=== PATIENT | female | born 1935 | race Caucasian/White ===

== ENCOUNTER 2016-03-20 15:35 | Observation (INO) ==
--- NOTE | 2016-03-20 15:46 | Emergency Department Note ---
Disposition Clinical Impression: Dyspnea Qualifiers: Dyspnea type: unspecified Qualified Code(s): R06.00 - Dyspnea, unspecified Chest pain Qualifiers: Chest pain type: unspecified Qualified Code(s): R07.9 - Chest pain, unspecified Disposition: Admitted As Inpatient Condition: Fair SOB HPI - General Chief Complaint: ED Shortness of Breath/Dyspnea Stated Complaint: BRITTNEY Time Seen by Provider: 03/20/16 15:39 Source: patient Mode of arrival: EMS Limitations: no limitations Nursing Notes Reviewed: Yes Vital Signs Reviewed: Yes - History of Present Illness 80-year-old comes in with congestion she said she's had for several days had some chest pain earlier and had a persistent cough. Pt Subjective Complaint: shortness of breath, cough Onset (ago): day(s) Context: recent illness Severity: moderate Consistency/Duration: constant Improves with: nothing Worsens with: nothing Associated symptoms: Reports: cough Treatment prior to arrival: none Cough Description: Involuntary Cough Frequency: Intermittent Sputum production: Yes - Related Data Home Medications Medication Instructions Recorded Confirmed Ammonium Lactate [Amlactin] 1 appl TP QID PRN 03/21/16 03/21/16 Aspirin [Lo-Dose Aspirin EC] 81 mg PO QPM 03/21/16 03/21/16 Benzonatate [Tessalon] 100 mg PO DAILY PRN 03/21/16 03/21/16 Buspirone HCl [Buspar] 5 mg PO BID 03/21/16 03/21/16 Calcium Carbonate [Tums] 500 mg PO Q4HR PRN 03/21/16 03/21/16 Calcium Carbonate/Vitamin D3 500 mg PO BID 03/21/16 03/21/16 [Liquid Calcium 600-Vit D3 Sfgl] Calcium Polycarbophil [Fibercon] 625 mg PO DAILY PRN 03/21/16 03/21/16 Cyclobenzaprine [Flexeril] 5 mg PO BID PRN 03/21/16 03/21/16 Dextran 70/Hypromellose 1 drop BOTH EYES BID 03/21/16 03/21/16 [Artificial Tears] Dextran 70/Hypromellose/Pf 1 drop BOTH EYES PRN PRN 03/21/16 03/21/16 [Artificial Tears Drops] Docusate Sodium [Dok] 100 mg PO BID PRN 03/21/16 03/21/16 Estradiol [Estrace] 1 appl VG SUTUTH 03/21/16 03/21/16 Furosemide [Lasix] 20 mg PO DAILY 03/21/16 03/21/16 Gabapentin [Neurontin] 100 mg PO TID 03/21/16 03/21/16 Hydrocodone/Acetaminophen [Vicodin 7.5 each PO Q4H PRN 03/21/16 03/21/16 Es 7.5-300 mg Tablet] Hydrocortisone Acetate [Anusol-Hc] 25 mg RC Q12HR PRN 03/21/16 03/21/16 Levothyroxine Sodium [Levo-T] 125 mcg PO DAILY 03/21/16 03/21/16 Menthol/Zinc Ox/Aloe/Randi Oil 1 appl TP TID PRN 03/21/16 03/21/16 [Chamosyn Ointment] Methyl Salicylate/Menthol [Bengay] 1 appl TP QID PRN 03/21/16 03/21/16 Metoprolol Tartrate [Lopressor] 12.5 mg PO BID 03/21/16 03/21/16 Multivitamin [Multivitamins] 1 tab PO DAILY 03/21/16 03/21/16 Naphazoline HCl/Zn Sulf/Gly [Clear 1 drop LEFT EYE Q4HR PRN 03/21/16 03/21/16 Eyes Itchy Eye Rlf Drops] Nystatin POWDER [Nystop] 1 appl TP DAILY 03/21/16 03/21/16 Polyethylene Glycol 3350 [MiraLAX] 17 gm PO DAILY PRN 03/21/16 03/21/16 Potassium Chloride [Klor-Con 10] 10 meq PO BID 03/21/16 03/21/16 Ranitidine HCl [Acid Intermodal Truck Driver] 150 mg PO BID 03/21/16 03/21/16 Simvastatin [Zocor] 20 mg PO DAILY 03/21/16 03/21/16 Timolol Maleate [Istalol] 1 drop BOTH EYES DAILY 03/21/16 03/21/16 Tramadol HCl [Ultram] 50 mg PO QID 03/21/16 03/21/16 Travoprost [Travatan Z] 1 drop BOTH EYES HS 03/21/16 03/21/16 Allergies Allergy/AdvReac Type Severity Reaction Status Date / Time Dopamine Allergy See Verified 01/12/16 09:45 Comments midazolam Allergy See Verified 01/12/16 09:45 Comments Penicillins Allergy Rash Verified 01/12/16 09:45 Sulfa (Sulfonamide Allergy Rash Verified 01/12/16 09:46 Antibiotics) terfenadine Allergy See Verified 01/12/16 09:46 Comments codeine AdvReac Headache Verified 01/12/16 09:45 Constitutional: Denies: fever, chills, weakness, weight change Eyes: Denies: eye pain, eye discharge, vision change ENT ED: Denies: ear pain, throat pain, dental pain, hearing loss, epistaxis, congestion, dysphagia Cardiovascular: Reports: chest pain. Denies: palpitations, dyspnea on exertion , edema, syncope Respiratory: Reports: cough, dyspnea. Denies: wheezes, hemoptysis, stridor Gastrointestinal: Denies: abdominal pain, nausea, vomiting, diarrhea, constipation, hematemesis, melena, hematochezia Genitourinary: Denies: dysuria, frequency, hematuria, discharge Musculoskeletal: Denies: back pain, neck pain, arthralgia, myalgia Integumentary: Denies: rash, abrasion, lesions Neurological: Denies: headache, weakness, numbness, paresthesias, confusion, abnormal gait, vertigo Psychiatric: Denies: anxiety, depression, suicidal thoughts, homicidal thoughts , auditory hallucinations, visual hallucinations Endocrine: Denies: fatigue Hematological/Lymphatic: Denies: easy bleeding, easy bruising Allergic/Immunologic: Denies: facial swelling, urticaria Past Medical History - Past Medical History Medical history: Reports: atrial fibrillation, CHF, CVA, GERD, hyperlipidemia, hypertension, RA, renal disease, thyroid disease Surgical history: Reports: coronary bypass (CABG) Psychiatric history: Reports: anxiety, other - Social History Smoking Status: Never smoker Smokeless Tobacco Status: No Alcohol use: Reports: none Drug use: Reports: none Physical Exam - General Limitations: no limitations General appearance: alert, in no apparent distress - Head Head exam: atraumatic, normocephalic, normal inspection - Eye Eye exam: Present: normal appearance, PERRL, EOMI - ENT ENT exam: normal exam, normal oropharynx, mucous membranes moist - Neck Neck exam: Present: normal inspection, full ROM, trachea midline - Chest Chest inspection: Present: normal inspection, symmetric chest wall rise - Respiratory Respiratory exam: Present: prolonged expiratory phase - Cardiovascular Cardiovascular exam: Present: regular rate, normal rhythm, normal heart sounds - Abdominal Exam Abdominal exam: Present: soft, Non-Tender. Absent: tenderness, distention, guarding, rebound, rigidity - Extremities Exam Extremities exam: Present: normal inspection, full ROM. Absent: tenderness, pedal edema - Expanded Lower Extremity Exam Neurovascular/Tendon exam: Absent: motor deficit, sensory deficit, tendon deficit Gait: not tested/not observed - Back Exam Back exam: Present: normal inspection, full ROM. Absent: tenderness - Neurological Exam Neurological exam: Present: alert, oriented X3 - Psychiatric Psychiatric exam: Present: normal affect, normal mood - Skin Skin exam: Present: warm, dry, intact, normal color Course - Consultations Consultation #1: I discussed the case with , who will come down and see the patient and make final disposition. Time: 17:02 Vital Signs Temperature 98.5 F 03/20/16 15:37 Pulse Rate 68 03/20/16 15:37 Respiratory Rate 18 03/20/16 15:37 Blood Pressure 124/76 03/20/16 15:37 O2 Sat by Pulse Oximetry 96 03/20/16 15:37 Temperature 97.3 F L 03/23/16 03:40 Pulse Rate 71 03/23/16 03:40 Respiratory Rate 16 03/23/16 03:40 Blood Pressure 121/69 03/23/16 03:40 O2 Sat by Pulse Oximetry 94 L 03/23/16 03:40 Oxygen Delivery Oxygen Delivery Room Air Shortness of Breath/Dyspnea - Lab Data Lab results reviewed: Yes I reviewed the patient's lab results. Result diagrams: 03/20/16 16:05 03/20/16 16:05 Lab Results 03/20/16 03/20/16 03/20/16 Range/Units 16:05 16:05 16:05 WBC 4.3 (4.3-11.1) K/mcL RBC 3.29 L (3.82-4.97) M/mcL Hgb 11.2 L (11.5-15.4) g/dL Hct 34.4 L (35.3-44.9) % MCV 104.6 H (83.0-100.0) fL MCH 34.0 H (28.0-33.3) pg MCHC 32.6 (31.6-35.5) g/dL RDW 13.3 (11.5-14.5) % Plt Count 173 (140-400) K/mcL MPV 9.9 (9.4-12.4) fL Immature Gran % 0.0 (0-4) % Seg Neutrophils % 60.8 % Lymphocytes % 20.3 % Monocytes % 15.0 % Eosinophils % 3.0 % Basophils % 0.9 % Neutrophils # 2.6 (1.6-8.9) K/mcL Lymphocytes # 0.9 (0.6-4.6) K/mcL Monocytes # 0.6 (0.0-1.3) K/mcL Eosinophils # 0.1 (0.0-0.6) K/mcL Basophils # 0.0 (0.0-0.2) K/mcL PT (9.4-12.1) Seconds INR APTT (26.0-36.0) Seconds Sodium 140 (136-145) mEq/L Potassium 4.7 H (3.5-4.5) mEq/L Chloride 106 (98-109) mEq/L Carbon Dioxide 27 (19-29) mEq/L BUN 17 (7-20) mg/dL Creatinine 0.87 (0.57-1.11) mg/dL Est GFR ( Amer) > 60 (> 60) Est GFR (Non-Af Amer) > 60 (> 60) BUN/Creatinine Ratio 20 (6-26) Glucose 96 (70-99) mg/dL Calculated Osmolality 291 (280-300) Lactic Acid (0.5-2.2) mmol/L Calcium 9.2 (8.6-10.8) mg/dL Troponin I 0.01 (0-0.03) ng/mL B-Natriuretic Peptide (0-100) pg/mL 03/20/16 03/20/16 03/20/16 Range/Units 16:05 16:05 16:13 WBC (4.3-11.1) K/mcL RBC (3.82-4.97) M/mcL Hgb (11.5-15.4) g/dL Hct (35.3-44.9) % MCV (83.0-100.0) fL MCH (28.0-33.3) pg MCHC (31.6-35.5) g/dL RDW (11.5-14.5) % Plt Count (140-400) K/mcL MPV (9.4-12.4) fL Immature Gran % (0-4) % Seg Neutrophils % % Lymphocytes % % Monocytes % % Eosinophils % % Basophils % % Neutrophils # (1.6-8.9) K/mcL Lymphocytes # (0.6-4.6) K/mcL Monocytes # (0.0-1.3) K/mcL Eosinophils # (0.0-0.6) K/mcL Basophils # (0.0-0.2) K/mcL PT 12.6 H (9.4-12.1) Seconds INR 1.2 APTT 42.7 H (26.0-36.0) Seconds Sodium (136-145) mEq/L Potassium (3.5-4.5) mEq/L Chloride (98-109) mEq/L Carbon Dioxide (19-29) mEq/L BUN (7-20) mg/dL Creatinine (0.57-1.11) mg/dL Est GFR ( Amer) (> 60) Est GFR (Non-Af Amer) (> 60) BUN/Creatinine Ratio (6-26) Glucose (70-99) mg/dL Calculated Osmolality (280-300) Lactic Acid 0.7 (0.5-2.2) mmol/L Calcium (8.6-10.8) mg/dL Troponin I (0-0.03) ng/mL B-Natriuretic Peptide 449 H (0-100) pg/mL - Radiology Data Radiology results reviewed: Yes I reviewed the patient's radiology results. Chest X-Ray 03/20/16 15:43 IMPRESSION: Stable elevation of the right hemidiaphragm with overlying atelectasis. No acute cardiopulmonary disease. D/ / Ace Elliott MD / Ace Elliott MD Interpreting Provider: Ace Elliott MD - EKG Data EKG attestation: Yes I reviewed and interpreted this EKG. EKG results narrative: Paced rhythm
[2016-03-20 16:19] LABS: Hematocrit 34.4 % (35.3-44.9); Hemoglobin 11.2 g/dL (11.5-15.4); Lymphocytes % 20.3 %; Mean Corpuscular HGB Conc 32.6 g/dL (31.6-35.5); Mean Corpuscular Volume 104.6 fL (83.0-100.0); Mean Platelet Volume 9.9 fL (9.4-12.4); Platelet Count 173 K/mcL (140-400); Red Blood Count 3.29 M/mcL (3.82-4.97); Red Cell Distribution Width 13.3 % (11.5-14.5); Segmented Neutrophils % 60.8 %
[2016-03-20 16:20] LABS: Basophils % 0.9 %; Eosinophils # 0.1 K/mcL (0.0-0.6); Lymphocytes # 0.9 K/mcL (0.6-4.6); Monocytes # 0.6 K/mcL (0.0-1.3); Neutrophils # 2.6 K/mcL (1.6-8.9)
[2016-03-20 16:27] LABS: INR 1.2; Prothrombin Time 12.6 Seconds (9.4-12.1)
[2016-03-20 16:29] LABS: Activated Partial Thrombo Time 42.7 Seconds (26.0-36.0)
[2016-03-20 16:32] LABS: BUN/Creatinine Ratio 20 (6-26); Blood Urea Nitrogen 17 mg/dL (7-20); Calcium 9.2 mg/dL (8.6-10.8); Carbon Dioxide 27 mEq/L (19-29); Chloride 106 mEq/L (98-109); Glucose 96 mg/dL (70-99); Osmolality,Calculated 291 (280-300); Potassium 4.7 mEq/L (3.5-4.5); Sodium 140 mEq/L (136-145); eGFR For African Americans > 60 (> 60); eGFR For Non-African Americans > 60 (> 60)
--- NOTE | 2016-03-20 18:17 | Internal Med History&Physical ---
Date of Encounter: 03/20/16 Time of Encounter: 18:12 Assessment and Plan (1) CAD (coronary artery disease) Current visit: Yes Status: Acute will continue home meds euvolemic on exam. ECHO on 07/13 shows LVEF of 55%. concentric LVH, has a pacemaker. Qualifiers: Coronary Disease-Associated Artery/Lesion type: bypass graft [place] vs. transplanted heart: [place] heart Associated angina: without angina Qualified Code(s): I25.810 - Atherosclerosis of coronary artery bypass graft(s) without angina pectoris (2) Goals of care, counseling/discussion Current visit: Yes Status: Acute We will consult social work, PT/OT. requesting to be placed in long-term. (3) Chest pain Current visit: Yes Status: Acute she may have acute bronchitis with cough and productive sputum. her sats are fine in RA , CXR has no infiltrate will observe for now, does not need antibiotics at this time with no fever and no leucocytosis. w will continue the Mucinex for now. We will send sputum for Gram stain and culture. Denies any chest pain at the time of my assessment. Pain is more on the left arm than on the left side of the chest. Does not need any further cardiac interventions. Initial troponin is negative. No ischemic changes on the EKG. Qualifiers: Chest pain type: unspecified Qualified Code(s): R07.9 - Chest pain, unspecified Internal Medicine - H&P: HPI Chief complaint: Persistent cough and chest pain. History of present illness: Ms. Davila is a 80 year old female with past medical history of CAD, [place] status post CABG in 2003, arthritis, hypertension presents to ED with persistent cough and chest pain for the last 3 days. As per the patient, she stays in assisted living and is not happy with the care she gets over there. She says that her symptoms started on Tuesday with some sore throat and mild cough. She was started on Mucinex, however she reports that her symptoms has been worsening and she has not been able to cough out the phlegm. she says that the doctor there has not checked her well. She denies any fever, reports that she has mild left-sided chest pain and left arm pain. She has chronic arthritis and has had left arm pain before, she says this is chronic and now it seems to be better. She denies any shortness of breath, leg swelling, orthopnea, PND, dyspnea on exertion. She is requesting social work consult for possible disposition to penitentiary at this time. her childern live out of town and are not here most of the time. Past Med Surg Social Fam HX - Past Medical History Medical history: atrial fibrillation, CHF, CVA, GERD, hyperlipidemia, hypertension, RA, renal disease, thyroid disease Psychiatric history: anxiety, other - Past Surgical History Surgical History: coronary bypass (CABG) - Social History Smoking Status: Never smoker Smokeless Tobacco Status: No Alcohol use: none Drug use: none Internal Medicine - H&P: Meds Hydrocodone/Acetaminophen [Vicodin Es 7.5-300 mg Tablet] 5 each PO Q4H PRN #10 tab 01/12/16 [Rx] Allergies Dopamine Allergy (Verified 01/12/16 09:45) See Comments doesn't remember reaction midazolam Allergy (Verified 01/12/16 09:45) See Comments doesn't remember reaction Penicillins Allergy (Verified 01/12/16 09:45) Rash Sulfa (Sulfonamide Antibiotics) Allergy (Verified 01/12/16 09:46) Rash terfenadine Allergy (Verified 01/12/16 09:46) See Comments doesn't remember reaction codeine Adverse Reaction (Verified 01/12/16 09:45) Headache All Systems PM: A 10-system review of systems was performed and is negative for pertinent findings except as documented above in the HPI. - Constitutional Constitutional: no chills, no fever(s), no night sweats - EENT Eyes: no change in vision, no discharge, no pain, no photophobia Ears: no ear discharge, no ear pain, no tinnitus Nose, mouth and throat: no dysphagia, no nasal discharge, no neck pain, no sore throat - Cardiovascular Cardiovascular ROS IM: no chest pain, no diaphoresis, no dyspnea, no lightheadedness, no palpitations, no syncope - Respiratory Respiratory: cough, no dyspnea, no wheezing, no excessive phlegm production - Gastrointestinal Gastrointestinal: no abdominal pain, no diarrhea, no hematemesis, no hematochezia, no melena, no nausea, no vomiting - Genitourinary Genitourinary: no change in urinary stream, no dysuria, no flank pain, no hematuria - Constitutional Vitals: Temp Pulse Resp BP Pulse Ox 98.5 F 68 18 124/76 96 03/20/16 15:37 03/20/16 15:37 03/20/16 15:37 03/20/16 15:37 03/20/16 15:37 General appearance: Present: A&O X 3, no acute distress Exam: neck- supple chest- b/l clear,no added sounds CVS-s1 and s2, n mr/g/ abd-soft,non tender, bs are present ext- no edema neuro- alert and awake, no focal neuro defecits. Internal Med - H&P Results - Labs CBC & Chem 7: 03/20/16 16:05 03/20/16 16:05
[2016-03-20] MEDS ORDERED: Naloxone 0.4 MG/ML INJ IVP PRN (18:21)
[2016-03-20] MEDS ORDERED: Acetylcysteine 10% 2 ML INHSOL IH SCH (18:30)
[2016-03-20] MEDS: *HR* Heparin 5,000 UNIT/ML VIAL SQ SCH (22:39)
[2016-03-21] MEDS: traMADol 50 MG TABLET PO SCH ×5 (02:45→21:28)
[2016-03-21] MEDS: Acetylcysteine 10% 2 ML INHSOL IH SCH ×4 (04:51→21:40)
[2016-03-21] MEDS: *HR* Heparin 5,000 UNIT/ML VIAL SQ SCH ×2 (06:44→18:15)
[2016-03-21] MEDS ORDERED: *HR* HYDROcodone/Acet 7.5/325 mg TABLET PO PRN (11:58)
[2016-03-21] MEDS ORDERED: Benzonatate 100 MG CAPSULE PO PRN (11:58)
[2016-03-21] MEDS ORDERED: traMADol 50 MG TABLET PO SCH (13:00)
--- NOTE | 2016-03-21 17:10 | Internal Med Progress Note ---
Date of Encounter: 03/21/16 Time of Encounter: 17:07 - Assessment and plan (1) CAD (coronary artery disease) Current Visit: Yes Status: Acute Assessment and plan: denies chest pain. continue home meds Qualifiers: Coronary Disease-Associated Artery/Lesion type: bypass graft [place] vs. transplanted heart: [place] heart Associated angina: without angina Qualified Code(s): I25.810 - Atherosclerosis of coronary artery bypass graft(s) without angina pectoris (2) Goals of care, counseling/discussion Current Visit: Yes Status: Acute Assessment and plan: await PT.OT recommendations if does not qualify for ECF/SNF, will dc back to assisted living. (3) Chest pain Current Visit: Yes Status: Acute Assessment and plan: denies any chest pain at this time. mild cough with yellowish phlegm. cxr has no infiltrate no fever or leucocytosis. will continue the mucinex for now. no need for antibiotics. Qualifiers: Chest pain type: unspecified Qualified Code(s): R07.9 - Chest pain, unspecified - Time Spent With Patient 25 - 35 minutes - Subjective Interval history: seen at the bedside, denies any complains except cough with productive phlegm. denies sob or fever. await PT/OT recommendtaions for possible placement to ECF/SNF. - Constitutional Vitals: Temp Pulse Resp BP Pulse Ox 97.8 F 78 16 149/87 98 03/21/16 16:10 03/21/16 16:10 03/21/16 16:10 03/21/16 16:10 03/21/16 16:10 General appearance: Present: A&O X 3, no acute distress Exam: neck- supple chest- b/l clear, no added sounds CVS-s1 and s2, no mr//g abd-soft, non tender, bs are present ext- no edema Internal Medicine: Result - Labs CBC & Chem 7: 03/20/16 16:05 03/20/16 16:05 - ABG Interpretation ABG results: PT/INR, D-dimer PT 12.6 Seconds (9.4-12.1) H 03/20/16 16:05 - VTE Documentation of Mechanical Device: Graduated compression elastic hosiery Consult Discharge Plan - Plan Referrals: Yony Rangel [Primary Care Provider] -
--- NOTE | 2016-03-21 20:02 | Electrocardiograph Report ---
[facility] Test Date: 2016-03-20 Pat Name: Aishwarya Davila Department: 105 Room: 3B13 Gender: F Store Team Member: SHIKHA : [id number] Requested By: Darell Aguirre Order Number: [id number] Reading MD: Conor Engel DO Measurements Intervals [place] Rate: 70 P: 249 UT: 176 QRS: -79 QRSD: 164 T: 75 QT: 417 QTc: 437 Interpretive Statements AV SEQUENTIAL PACING Electronically Signed On 03-21-16 20:01:54 EST by Conor Engel DO
[2016-03-21] MEDS: Famotidine 20 MG TABLET PO SCH (21:28)
[2016-03-21] MEDS: Artificial Tears SOLN 15 ML BOTTLE BOTH EYES SCH (21:29)
[2016-03-22] MEDS: Acetylcysteine 10% 2 ML INHSOL IH SCH ×3 (03:13→15:55)
[2016-03-22] MEDS: *HR* Heparin 5,000 UNIT/ML VIAL SQ SCH ×2 (06:08→20:02)
[2016-03-22] MEDS: Gabapentin 100 MG CAPSULE PO SCH (10:06)
[2016-03-22] MEDS: Aspirin Enteric Coated 81 MG Tablet PO SCH (10:06)
[2016-03-22] MEDS: Furosemide 20 MG TABLET PO SCH (10:06)
[2016-03-22] MEDS: traMADol 50 MG TABLET PO SCH ×4 (10:06→20:02)
[2016-03-22] MEDS: Famotidine 20 MG TABLET PO SCH ×2 (10:06→20:01)
[2016-03-22] MEDS: Artificial Tears SOLN 15 ML BOTTLE BOTH EYES SCH ×2 (10:06→20:03)
--- NOTE | 2016-03-22 17:27 | Event Note ---
Date of Encounter: 03/22/16 Time of Encounter: 17:27 Patient seen at the bedside, denies any complaints. SHe reports that the cough is better. Seen by PT OT at the bedside, recommending ECF/SNF at discharge. Awaiting social work for placement. no new intervention at this time.
[2016-03-23] MEDS: *HR* Heparin 5,000 UNIT/ML VIAL SQ SCH (06:13)
[2016-03-23] MEDS: traMADol 50 MG TABLET PO SCH ×2 (06:13→12:01)
[2016-03-23] MEDS: Aspirin Enteric Coated 81 MG Tablet PO SCH (09:02)
[2016-03-23] MEDS: Gabapentin 100 MG CAPSULE PO SCH (09:02)
[2016-03-23] MEDS: Famotidine 20 MG TABLET PO SCH (09:03)
[2016-03-23] MEDS: Furosemide 20 MG TABLET PO SCH (09:03)
--- NOTE | 2016-03-23 11:59 | Physician Discharge Referral ---
ExtendedCare Referral Info Transfer To: [facility] Provider in Charge: britton adames Institutional Level of Care: Intermediate - MR - Diagnosis (1) CAD (coronary artery disease) Status: Acute (2) Goals of care, counseling/discussion Status: Acute (3) Chest pain Status: Acute - Transfer Medications Home Medications: Ammonium Lactate [Amlactin] 1 appl TP QID PRN 03/21/16 [History] Aspirin [Lo-Dose Aspirin EC] 81 mg PO QPM 03/21/16 [History] Benzonatate [Tessalon] 100 mg PO DAILY PRN 03/21/16 [History] Buspirone HCl [Buspar] 5 mg PO BID 03/21/16 [History] Calcium Carbonate [Tums] 500 mg PO Q4HR PRN 03/21/16 [History] Calcium Carbonate/Vitamin D3 [Liquid Calcium 600-Vit D3 Sfgl] 500 mg PO BID [History] Calcium Polycarbophil [Fibercon] 625 mg PO DAILY PRN 03/21/16 [History] Cyclobenzaprine [Flexeril] 5 mg PO BID PRN 03/21/16 [History] Dextran 70/Hypromellose [Artificial Tears] 1 drop BOTH EYES BID 03/21/16 [ History] Dextran 70/Hypromellose/Pf [Artificial Tears Drops] 1 drop BOTH EYES PRN PRN [History] Docusate Sodium [Dok] 100 mg PO BID PRN 03/21/16 [History] Estradiol [Estrace] 1 appl VG SUTUTH 03/21/16 [History] Furosemide [Lasix] 20 mg PO DAILY 03/21/16 [History] Gabapentin [Neurontin] 100 mg PO TID 03/21/16 [History] Hydrocodone/Acetaminophen [Vicodin Es 7.5-300 mg Tablet] 7.5 each PO Q4H PRN [History] Hydrocortisone Acetate [Anusol-Hc] 25 mg RC Q12HR PRN 03/21/16 [History] Levothyroxine Sodium [Levo-T] 125 mcg PO DAILY 03/21/16 [History] Menthol/Zinc Ox/Aloe/Randi Oil [Chamosyn Ointment] 1 appl TP TID PRN 03/21/16 [ History] Methyl Salicylate/Menthol [Bengay] 1 appl TP QID PRN 03/21/16 [History] Metoprolol Tartrate [Lopressor] 12.5 mg PO BID 03/21/16 [History] Multivitamin [Multivitamins] 1 tab PO DAILY 03/21/16 [History] Naphazoline HCl/Zn Sulf/Gly [Clear Eyes Itchy Eye Rlf Drops] 1 drop LEFT EYE Q4HR PRN 03/21/16 [History] Nystatin POWDER [Nystop] 1 appl TP DAILY 03/21/16 [History] Polyethylene Glycol 3350 [MiraLAX] 17 gm PO DAILY PRN 03/21/16 [History] Potassium Chloride [Klor-Con 10] 10 meq PO BID 03/21/16 [History] Ranitidine HCl [Acid Metalworking Instructor] 150 mg PO BID 03/21/16 [History] Simvastatin [Zocor] 20 mg PO DAILY 03/21/16 [History] Timolol Maleate [Istalol] 1 drop BOTH EYES DAILY 03/21/16 [History] Tramadol HCl [Ultram] 50 mg PO QID 03/21/16 [History] Travoprost [Travatan Z] 1 drop BOTH EYES HS 03/21/16 [History] Allergies/Adverse Reactions: Allergies Dopamine Allergy (Verified 01/12/16 09:45) See Comments doesn't remember reaction midazolam Allergy (Verified 01/12/16 09:45) See Comments doesn't remember reaction Penicillins Allergy (Verified 01/12/16 09:45) Rash Sulfa (Sulfonamide Antibiotics) Allergy (Verified 01/12/16 09:46) Rash terfenadine Allergy (Verified 01/12/16 09:46) See Comments doesn't remember reaction codeine Adverse Reaction (Verified 01/12/16 09:45) Headache - Respiratory Orders Smoking Cessation: Smoking cessation has been advised. For more information, call the [place] Tobacco Quit Line at 8-346-PRXN-NOW. - Advance Directives Code Status: Full Code - Mobility Orders Chair, Ambulate - Rehabiliation Orders Rehab Potential: Fair Rehab Orders: Evaluation for Physical Therapy, Evaluation for Occupational Therapy - Diet Orders Regular CERTIFICATION: I certify that the transfer of the above named patient to an Extended Care Facility is necessary for the continuing treatment of the diagnosis listed. The above information is true and accurate reflection of patient's current condition. Confidential - Redisclosure prohibited without a patient's written consent.
--- NOTE | 2016-03-23 15:29 | Discharge Summary ---
Date of Encounter: 03/23/16 Time of Encounter: 15:26 - Discharge Diagnosis (1) CAD (coronary artery disease) Priority: Secondary Status: Acute Qualifiers: Coronary Disease-Associated Artery/Lesion type: bypass graft [place] vs. transplanted heart: [place] heart Associated angina: without angina Qualified Code(s): I25.810 - Atherosclerosis of coronary artery bypass graft(s) without angina pectoris (2) Goals of care, counseling/discussion Priority: Primary Status: Acute (3) Chest pain Priority: Primary Status: Acute Qualifiers: Chest pain type: unspecified Qualified Code(s): R07.9 - Chest pain, unspecified - Discharge Medications Prescriptions: Benzonatate [Tessalon] 100 mg PO DAILY PRN 10 Days PRN Reason: Cough GuaiFENesin ER [Mucinex] 600 mg PO BID #10 tbbp.12hr Tramadol HCl [Ultram] 50 mg PO QID #30 tablet Home Medications: Ammonium Lactate [Amlactin] 1 appl TP QID PRN 03/21/16 [History] Aspirin [Lo-Dose Aspirin EC] 81 mg PO QPM 03/21/16 [History] Benzonatate [Tessalon] 100 mg PO DAILY PRN 03/21/16 [History] Buspirone HCl [Buspar] 5 mg PO BID 03/21/16 [History] Calcium Carbonate [Tums] 500 mg PO Q4HR PRN 03/21/16 [History] Calcium Carbonate/Vitamin D3 [Liquid Calcium 600-Vit D3 Sfgl] 500 mg PO BID [History] Calcium Polycarbophil [Fibercon] 625 mg PO DAILY PRN 03/21/16 [History] Cyclobenzaprine [Flexeril] 5 mg PO BID PRN 03/21/16 [History] Dextran 70/Hypromellose [Artificial Tears] 1 drop BOTH EYES BID 03/21/16 [ History] Dextran 70/Hypromellose/Pf [Artificial Tears Drops] 1 drop BOTH EYES PRN PRN [History] Docusate Sodium [Dok] 100 mg PO BID PRN 03/21/16 [History] Estradiol [Estrace] 1 appl VG SUTUTH 03/21/16 [History] Furosemide [Lasix] 20 mg PO DAILY 03/21/16 [History] Gabapentin [Neurontin] 100 mg PO TID 03/21/16 [History] Hydrocodone/Acetaminophen [Vicodin Es 7.5-300 mg Tablet] 7.5 each PO Q4H PRN [History] Hydrocortisone Acetate [Anusol-Hc] 25 mg RC Q12HR PRN 03/21/16 [History] Levothyroxine Sodium [Levo-T] 125 mcg PO DAILY 03/21/16 [History] Menthol/Zinc Ox/Aloe/Randi Oil [Chamosyn Ointment] 1 appl TP TID PRN 03/21/16 [ History] Methyl Salicylate/Menthol [Bengay] 1 appl TP QID PRN 03/21/16 [History] Metoprolol Tartrate [Lopressor] 12.5 mg PO BID 03/21/16 [History] Multivitamin [Multivitamins] 1 tab PO DAILY 03/21/16 [History] Naphazoline HCl/Zn Sulf/Gly [Clear Eyes Itchy Eye Rlf Drops] 1 drop LEFT EYE Q4HR PRN 03/21/16 [History] Nystatin POWDER [Nystop] 1 appl TP DAILY 03/21/16 [History] Polyethylene Glycol 3350 [MiraLAX] 17 gm PO DAILY PRN 03/21/16 [History] Potassium Chloride [Klor-Con 10] 10 meq PO BID 03/21/16 [History] Ranitidine HCl [Acid Director Consumer Affairs] 150 mg PO BID 03/21/16 [History] Simvastatin [Zocor] 20 mg PO DAILY 03/21/16 [History] Timolol Maleate [Istalol] 1 drop BOTH EYES DAILY 03/21/16 [History] Travoprost [Travatan Z] 1 drop BOTH EYES HS 03/21/16 [History] Benzonatate [Tessalon] 100 mg PO DAILY PRN 10 Days 03/23/16 [Rx] GuaiFENesin ER [Mucinex] 600 mg PO BID #10 tbbp.12hr 03/23/16 [Rx] Tramadol HCl [Ultram] 50 mg PO QID #30 tablet 03/23/16 [Rx] Allergies/Adverse Reactions: Allergies Dopamine Allergy (Verified 01/12/16 09:45) See Comments doesn't remember reaction midazolam Allergy (Verified 01/12/16 09:45) See Comments doesn't remember reaction Penicillins Allergy (Verified 01/12/16 09:45) Rash Sulfa (Sulfonamide Antibiotics) Allergy (Verified 01/12/16 09:46) Rash terfenadine Allergy (Verified 01/12/16 09:46) See Comments doesn't remember reaction codeine Adverse Reaction (Verified 01/12/16 09:45) Headache Date of admission: 03/20/16 18:01 Primary care physician: Yony Rangel Consults: 03/20/16 18:22 Consult to Career Services Assistant [CONS] Routine Reason for SW Consult: requesting NH placement 03/20/16 18:23 Consult to Occupational Therapy [CONS] Routine Comment: Evaluate, develop and implement POC Consult to Physical Therapy [CONS] Routine Comment: Evaluate, develop and implement POC Discharging clinician: Rod Malin Anticipated date of discharge: 03/23/16 - Patient Status Disposition: Transfer Other Condition: Fair Functional capacity at discharge: uses cane/walker Overall status at discharge: patient is back to baseline - Discharge Instructions Follow Up With: Hussein Roe MD [Non-Partnered Physician] - 04/05/16 1:00 pm Yony Rangel [Primary Care Provider] - - Diet and Activity Activity: as per physical therapy Diet: advance to your usual diet Interval History: Ms. Davila is a 80 year old female with past medical history of CAD, [place] status post CABG in 2003, arthritis, hypertension presents to ED with persistent cough and chest pain for the last 3 days. As per the patient, she stays in assisted living and is not happy with the care she gets over there. She says that her symptoms started on Tuesday with some sore throat and mild cough. She was started on Mucinex, however she reports that her symptoms has been worsening and she has not been able to cough out the phlegm. she says that the doctor there has not checked her well. She denies any fever, reports that she has mild left-sided chest pain and left arm pain. She has chronic arthritis and has had left arm pain before, she says this is chronic and now it seems to be better. She denies any shortness of breath, leg swelling, orthopnea, PND, dyspnea on exertion. She is requesting social work consult for possible disposition to [facility] at this time. her childern live out of town and are not here most of the time. Hospital course: she was admitted for PT/OT evaluation for possible trasnfer to ECF. PT/OT qualified for ECF. [facility], however they do not have an available bed at this time. she was thus planned for being [facility]ferred to [facility], however patient insists that she wants to go back to her assisted living place at this time. She reports that she has full decisional capacity and has moderate to decide where she will stay. she was advised that it is unsafe for her to go back to assisted living due to lack of enough support and will need inpatient rehab temporarily. however,she insists on going back to her assisted living. She reports improvement in her cough, denies any chest pain or shortness of breath. She will be discharged back to assisted living in stable condition today. Time spent discussing smoking cessation with patient: more than 10 minutes - Time Spent with Patient Total time spent providing and/or coordinating discharge services: Greater than 30 minutes - Constitutional Vitals: Temp Pulse Resp BP Pulse Ox 97.6 F 71 15 140/77 100 03/23/16 12:11 03/23/16 12:11 03/23/16 12:11 03/23/16 12:11 03/23/16 12:11 General appearance: Present: A&O X 3, no acute distress Exam: neck- supple chest- b/l clear, no added sounds CVS-s1 and s2, no mr//g abd-soft, non tender, bs are present ext- no edema - VTE Documentation of Mechanical Device: Graduated compression elastic hosiery
[2016-03-23 15:51] VITALS: BP 147/85
== END 2016-03-23 18:51 ==
LOC: EMEROO 15:35 → 3BNU 15:35 → SUATTDRO 18:01 → 3BNU 19:32
PROVIDERS: ADMIT Nurse Practitioner Family; ATTEND Internal Medicine Endocrinology, Diabetes & Metabolism

== ENCOUNTER 2018-02-11 12:41 | Observation (INO) ==
[2018-02-11] MEDS ORDERED: methylPREDNISolone 125 MG/2 ML VIAL IVP ONE (12:59)
[2018-02-11] MEDS ORDERED: Azithromycin 250 MG TABLET PO ONE (12:59)
[2018-02-11] MEDS ORDERED: Ipratropium/Albuterol Neb 3 ML IH ONE ×2 (12:59→15:16)
--- NOTE | 2018-02-11 13:12 | Emergency Department Note ---
Disposition Clinical Impression: COPD exacerbation, Hypoxia, Respiratory distress Disposition: Admitted As Inpatient Condition: Fair Referrals: NONE,PCP [Primary Care Provider] - Forms: ED Satisfaction Letter Time of Disposition: 16:34 SOB HPI - General Chief Complaint: ED Shortness of Breath/Dyspnea Stated Complaint: BRITTNEY/cough Time Seen by Provider: 02/11/18 12:52 Source: patient, EMS Limitations: no limitations Vital Signs Reviewed: Yes - History of Present Illness This is an 82-year-old female with a history of COPD presenting to the emergency department from her outpatient manager cardiac office for further evaluation. Patient is currently anxious and having labored breathing and does not provide a detailed history, however per report patient has oxygen at home and is currently experienced worsening of her shortness of breath. She was evaluated by a manager cardiac today to establish care, and she was found to be hypoxic in the 80s at the manager cardiac office so she was directed to go to the emergency department. In the emergency department patient appears to be anxious and has l abored breaths, she is saturating at 94% on 6 L. She denies any recent fevers chills. - Related Data Home Medications Medication Instructions Recorded Confirmed Ammonium Lactate [Amlactin] 1 appl TP QID PRN 03/21/16 03/21/16 Aspirin [Lo-Dose Aspirin EC] 81 mg PO QPM 03/21/16 03/21/16 Buspirone HCl [Buspar] 5 mg PO BID 03/21/16 03/21/16 Calcium Carbonate/Vitamin D3 500 mg PO BID 03/21/16 03/21/16 [Liquid Calcium 600-Vit D3 Sfgl] Calcium Polycarbophil [Fibercon] 625 mg PO DAILY PRN 03/21/16 03/21/16 Cyclobenzaprine [Flexeril] 5 mg PO BID PRN 03/21/16 03/21/16 Dextran 70/Hypromellose/Pf 1 drop BOTH EYES PRN PRN 03/21/16 03/21/16 [Artificial Tears Drops] Docusate Sodium [Dok] 100 mg PO BID PRN 03/21/16 03/21/16 Estradiol [Estrace] 1 appl VG SUTUTH 03/21/16 03/21/16 Furosemide [Lasix] 20 mg PO DAILY 03/21/16 03/21/16 Gabapentin [Neurontin] 100 mg PO TID 03/21/16 03/21/16 Levothyroxine Sodium [Levo-T] 125 mcg PO DAILY 03/21/16 03/21/16 Menthol/Zinc Ox/Aloe/Randi Oil 1 appl TP TID PRN 03/21/16 03/21/16 [Chamosyn Ointment] Methyl Salicylate/Menthol [Bengay] 1 appl TP QID PRN 03/21/16 03/21/16 Metoprolol Tartrate [Lopressor] 12.5 mg PO BID 03/21/16 03/21/16 Multivitamin [Multivitamins] 1 tab PO DAILY 03/21/16 03/21/16 Naphazoline HCl/Zn Sulf/Gly [Clear 1 drop LEFT EYE Q4HR PRN 03/21/16 03/21/16 Eyes Itchy Eye Rlf Drops] Nystatin POWDER [Nystop] 1 appl TP DAILY 03/21/16 03/21/16 Polyethylene Glycol 3350 [MiraLAX] 17 gm PO DAILY PRN 03/21/16 03/21/16 Potassium Chloride [Klor-Con 10] 10 meq PO BID 03/21/16 03/21/16 Ranitidine HCl [Acid Roll Up Guider Operator] 150 mg PO BID 03/21/16 03/21/16 Simvastatin [Zocor] 20 mg PO DAILY 03/21/16 03/21/16 Timolol Maleate [Istalol] 1 drop BOTH EYES DAILY 03/21/16 03/21/16 Travoprost [Travatan Z] 1 drop BOTH EYES HS 03/21/16 03/21/16 Previous Rx's Medication Instructions Recorded GuaiFENesin ER [Mucinex] 600 mg PO BID #10 tbbp.12hr 03/23/16 Tramadol HCl [Ultram] 50 mg PO QID #30 tablet 03/23/16 Allergies Allergy/AdvReac Type Severity Reaction Status Date / Time Dopamine Allergy See Verified 06/22/16 12:35 Comments midazolam Allergy See Verified 06/22/16 12:35 Comments Penicillins Allergy Rash Verified 06/22/16 12:35 Sulfa (Sulfonamide Allergy Rash Verified 06/22/16 12:35 Antibiotics) terfenadine Allergy See Verified 06/22/16 12:35 Comments codeine AdvReac Headache Verified 06/22/16 12:35 All systems ED: reviewed and negative except as stated. 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 history - Social History Smoking Status: Never smoker Smokeless Tobacco Status: No Alcohol use: Reports: none Drug use: Reports: none Physical Exam - General Limitations: no limitations General appearance: alert, in distress, other (Frail-appearing elderly female with labored respirations) - Head Head exam: atraumatic, normocephalic - Eye Eye exam: Present: normal appearance - Neck Neck exam: Present: normal inspection, trachea midline - Chest Chest inspection: Present: symmetric chest wall rise, other (No intercostal retractions, shallow breaths) - Respiratory Respiratory exam: Present: other (Diffuse rhonchorous breath sounds with respiratory wheezes present bilaterally.) - Cardiovascular Cardiovascular exam: Present: regular rate, normal rhythm, +S1, +S2 - Abdominal Exam Abdominal exam: Present: soft, Non-Tender. Absent: guarding, rigidity - Extremities Exam Extremities exam: Present: pedal edema - Neurological Exam Neurological exam: Present: alert, oriented X3 - Psychiatric Psychiatric exam: Present: anxious - Skin Skin exam: Present: other (Appropriate for age) Course Course Narrative: 13:12 82-year-old female with history of COPD presenting for hypoxia and respiratory distress from outpatient drafter civil (cad) office. Concern at this time for COPD exacerbation versus underlying pneumonia. Workup to further evaluate underlying cause will include CBC, BMP, chest x-ray, EKG, troponin, BNP, blood cultures, and lactic acid. We will also treat as though this is a COPD exacerbation patient will receive azithromycin, Solu-Medrol, and breathing treatments times 3. 15:16 Labs show no leukocytosis, no acidosis on ABG, troponin negative. Chest x-ray pending. Saturating 94% on 2 L. 16:21 Reevaluated the patient after she received her second breathing treatment, she still has coarse breath sounds bilaterally. No wheezing noted. Chest x-ray still pending, plan to admit the patient for hypoxia and respiratory failure o nce entire workup is complete. 16:29 Called radiology who informed me that the report was not read yet, but that the study was read as "no acute cardiopulmonary process". Patient will be admitted to the hospital for COPD exacerbation. Called hospitalist and he agreed to the admission. Vital Signs Temperature 98.6 F 02/11/18 12:42 Pulse Rate 75 02/11/18 12:42 Respiratory Rate 20 02/11/18 12:42 Blood Pressure 127/74 02/11/18 12:42 O2 Sat by Pulse Oximetry 94 02/11/18 12:42 Temperature 98.6 F 02/11/18 12:42 Pulse Rate 75 02/11/18 12:42 Respiratory Rate 20 02/11/18 16:11 Blood Pressure 127/74 02/11/18 12:42 O2 Sat by Pulse Oximetry 92 02/11/18 16:11 Oxygen Delivery Oxygen Delivery Nasal Cannula Shortness of Breath/Dyspnea - Lab Data Result diagrams: 02/11/18 13:30 02/11/18 13:30 Lab Results 02/11/18 02/11/18 02/11/18 Range/Units 13:30 13:30 13:30 WBC 8.6 D (4.3-11.1) K/mcL RBC 3.46 L (3.82-4.97) M/mcL Hgb 11.9 (11.5-15.4) g/dL Hct 37.5 (35.3-44.9) % MCV 108.4 H (83.0-100.0) fL MCH 34.4 H (28.0-33.3) pg MCHC 31.7 (31.6-35.5) g/dL RDW 14.0 (11.5-14.5) % Plt Count 127 L (140-400) K/mcL MPV 10.3 (9.4-12.4) fL Immature Gran % 0.3 (0-4) % Seg Neutrophils % 72.9 % Lymphocytes % 13.3 % Monocytes % 12.1 % Eosinophils % 1.2 % Basophils % 0.2 % Neutrophils # 6.3 (1.6-8.9) K/mcL Lymphocytes # 1.1 (0.6-4.6) K/mcL Monocytes # 1.0 (0.0-1.3) K/mcL Eosinophils # 0.1 (0.0-0.6) K/mcL Basophils # 0.0 (0.0-0.2) K/mcL Sample Site ABG pH (7.32-7.45) pH Units ABG pCO2 (35-45) mmHg ABG pO2 (85-104) mmHg ABG HCO3 (21-27) mEq/L ABG Total CO2 (20-26) mEq/L ABG O2 Saturation (95-98) % ABG Base Excess (-2 to 3) mEq/L Pj Test O2 Delivery Device Inspired O2 (1-15=lpm [id number]=%) Sodium 143 (136-145) mEq/L Potassium 3.8 (3.5-5.1) mEq/L Chloride 98 (98-107) mEq/L Carbon Dioxide 39 H (23-29) mEq/L BUN 22 (8-23) mg/dL Creatinine 0.79 (0.60-1.20) mg/dL Est GFR ( Amer) > 60 (> 60) Est GFR (Non-Af Amer) > 60 (> 60) BUN/Creatinine Ratio 28 H (6-26) Glucose 107 H (70-105) mg/dL Calculated Osmolality 300 (280-300) Lactic Acid 1.2 (0.5-2.2) mmol/L Calcium 9.2 (8.6-10.3) mg/dL Troponin I < 0.03 (< 0.04) ng/mL B-Natriuretic Peptide (Less than 100) pg/mL 02/11/18 02/11/18 Range/Units 13:30 14:12 WBC (4.3-11.1) K/mcL RBC (3.82-4.97) M/mcL Hgb (11.5-15.4) g/dL Hct (35.3-44.9) % MCV (83.0-100.0) fL MCH (28.0-33.3) pg MCHC (31.6-35.5) g/dL RDW (11.5-14.5) % Plt Count (140-400) K/mcL MPV (9.4-12.4) fL Immature Gran % (0-4) % Seg Neutrophils % % Lymphocytes % % Monocytes % % Eosinophils % % Basophils % % Neutrophils # (1.6-8.9) K/mcL Lymphocytes # (0.6-4.6) K/mcL Monocytes # (0.0-1.3) K/mcL Eosinophils # (0.0-0.6) K/mcL Basophils # (0.0-0.2) K/mcL Sample Site R Radial ABG pH 7.44 (7.32-7.45) pH Units ABG pCO2 57 H (35-45) mmHg ABG pO2 187 H (85-104) mmHg ABG HCO3 38 H (21-27) mEq/L ABG Total CO2 40 H (20-26) mEq/L ABG O2 Saturation 100 H (95-98) % ABG Base Excess 12 H (-2 to 3) mEq/L Pj Test N/A O2 Delivery Device Cannula Inspired O2 4.0 (1-15=lpm [id number]=%) Sodium (136-145) mEq/L Potassium (3.5-5.1) mEq/L Chloride (98-107) mEq/L Carbon Dioxide (23-29) mEq/L BUN (8-23) mg/dL Creatinine (0.60-1.20) mg/dL Est GFR ( Amer) (> 60) Est GFR (Non-Af Amer) (> 60) BUN/Creatinine Ratio (6-26) Glucose (70-105) mg/dL Calculated Osmolality (280-300) Lactic Acid (0.5-2.2) mmol/L Calcium (8.6-10.3) mg/dL Troponin I (< 0.04) ng/mL B-Natriuretic Peptide 229 H (Less than 100) pg/mL - EKG Data EKG attestation: Yes I reviewed and interpreted this EKG. EKG results narrative: EKG shows paced rhythm with a heart rate is 70. Left axis deviation. No ST elevations based on S[place] criteria. No T-wave changes when compared to old EKG dated . Critical Care Time Critical Care Time: Yes Total Critical Care Time: 35 Attestation: Critical care time 35 minutes managing patient's hypoxia. Attestation Statement - Attestation Attestation: Patient was seen with resident physician. I reviewed the history, physical, assessment and plan, and agree with the findings. I also personally evaluated this patient and had [id number] time with this patient. 82-year-old female presents to the emergency department at the request of her manager cardiac for difficult breathing and hypoxia. Patient is a long-term patient had her first appointment with pulmonology today. On their evaluation she was found to be significantly hypoxic with increased work of breathing. She was sent directly to the emergency department for additional evaluation to make sure she does not have pneumonia. Patient himself provides very limited history. Review of systems difficult secondary to patient's baseline mental status. Physical exam vital signs are stable. ENT is unremarkable. Heart regular rhythm and rate. Lungs diffuse wheezing and crackles heard throughout with poor air exchange and shallow breathing. Abdomen is soft and nontender. Extremities unremarkable. Neurologically patient's awake and alert moves all extremities no obvious deficits. Skin no obvious rashes or lesions. Psych unable. ED course we will do workup for pneumonia and influenza and will admit the patient to the hospitalist service. With her hypoxia she is not going to be able to go home. We will also try some breathing treatments as well. Chest x- ray did not show any acute abnormalities. Patient's breathing was improved with breathing treatments. At this point I think is a COPD exacerbation. We will place the patient on O2 and have her admitted to the hospitalist service for breathing treatments and additional management is indicated. Critical care time was 35 minutes. Agree with resident physician assessment and plan.
[2018-02-11 13:48] LABS: Basophils % 0.2 %; Eosinophils # 0.1 K/mcL (0.0-0.6); Eosinophils % 1.2 %; Hematocrit 37.5 % (35.3-44.9); Hemoglobin 11.9 g/dL (11.5-15.4); Immature Granulocytes % 0.3 % (0-4); Lymphocytes # 1.1 K/mcL (0.6-4.6); Lymphocytes % 13.3 %; Mean Corpuscular HGB Conc 31.7 g/dL (31.6-35.5); Mean Corpuscular Hemoglobin 34.4 pg (28.0-33.3); Mean Corpuscular Volume 108.4 fL (83.0-100.0); Mean Platelet Volume 10.3 fL (9.4-12.4); Monocytes % 12.1 %; Neutrophils # 6.3 K/mcL (1.6-8.9); Platelet Count 127 K/mcL (140-400); Red Blood Count 3.46 M/mcL (3.82-4.97); Segmented Neutrophils % 72.9 %
[2018-02-11 14:05] LABS: BUN/Creatinine Ratio 28 (6-26); Blood Urea Nitrogen 22 mg/dL (8-23); Calcium 9.2 mg/dL (8.6-10.3); Carbon Dioxide 39 mEq/L (23-29); Chloride 98 mEq/L (98-107); Glucose 107 mg/dL (70-105); Osmolality,Calculated 300 (280-300); Potassium 3.8 mEq/L (3.5-5.1); Sodium 143 mEq/L (136-145); Troponin I < 0.03 ng/mL (< 0.04); eGFR For Non-African Americans > 60 (> 60)
[2018-02-11 14:17] LABS: ABG Base Excess 12 mEq/L (-2 to 3); ABG HCO3 38 mEq/L (21-27); ABG Oxygen Saturation 100 % (95-98); ABG PCO2 57 mmHg (35-45); ABG PH 7.44 pH Units (7.32-7.45); ABG PO2 187 mmHg (85-104); ABG TCO2 40 mEq/L (20-26)
[2018-02-11] MEDS ORDERED: Azithromycin 500 MG in D5% in Water 250 ML IVPB ONE (15:50)
[2018-02-11] MEDS ORDERED: Albuterol 2.5 MG/3 ML NEBULIZER IH PRN (16:52)
[2018-02-11] MEDS ORDERED: Naloxone 0.4 MG/ML INJ IVP PRN (16:54)
--- NOTE | 2018-02-11 17:03 | Internal Med History&Physical ---
Date of Encounter: 02/11/18 Time of Encounter: 17:01 Internal Medicine - H&P: HPI Chief complaint: COUGH, WHEEZING, DYSPNEA Admitted From: Home Plans for Post Hospital Care: Home History of present illness: Ms. Davila is a 82 year old female with a PMH of atrial fibrillation, CHF, CVA, GERD, hyperlipidemia, hypertension, RA, renal disease, hypothyroidism who presents to the ED from her tong setter office for further evaluation D/T concerns for and acute exacerbation of COPD. The patient is demented and all information was obtained form chart review and physician to physician report. It was reported that she was at a tong setter appointment today and was noted to be dyspneic and hypoxid with SPO2 in the 70's. EMS was called; by the time of EMS arrival the patient's SPO2 was in the 80's. While in the ED she received supplementary O2, aerosols, IV azithromycin and IV steroids. Subsequently her respiratory somewhat improved. CXR was negative for acute pulmonary process. During my assessment in the ED she continues to have course breath sounds B/L AP&L and is continuing to have conversational dyspnea and expiratory wheezing. She is demented but is somewhat able to answer simple questions and denies any recent URI s/sx, fevers, and chills. She is currently not expressing any chest pain and does not appear to have unilateral extremity swelling or pain. As such she is being admitted for observation and further treatment of AECOPD. Past Med Surg Social Fam HX - Past Medical History Medical history: atrial fibrillation, CHF, CVA, GERD, hyperlipidemia, hypertension, RA, renal disease, thyroid disease Psychiatric history: anxiety, other - Past Surgical History Surgical History: coronary bypass (CABG) - Social History Smoking Status: Never smoker Smokeless Tobacco Status: No Alcohol use: none Drug use: none - Family History Father Living Status: Hx Family Cardiac Disorders: Yes Hx Family Respiratory Disorders: No Hx Family Cancer: No Hx Family GI Disorders: No Hx Family Endocrine Disorder: No Hx Family Neuromuscular Disorders: No Hx Family Neurologic Disorders: No Hx Family HEENT Disorders: No Hx Family Autoimmune Disorders: No Internal Medicine - H&P: Meds Ammonium Lactate [Amlactin] 1 appl TP QID PRN 03/21/16 [History] Aspirin [Lo-Dose Aspirin EC] 81 mg PO QPM 03/21/16 [History] Buspirone HCl [Buspar] 5 mg PO BID 03/21/16 [History] Calcium Carbonate/Vitamin D3 [Liquid Calcium 600-Vit D3 Sfgl] 500 mg PO BID 03/21/16 [History] Calcium Polycarbophil [Fibercon] 625 mg PO DAILY PRN 03/21/16 [History] Cyclobenzaprine [Flexeril] 5 mg PO BID PRN 03/21/16 [History] Dextran 70/Hypromellose/Pf [Artificial Tears Drops] 1 drop BOTH EYES PRN PRN 03/21/16 [History] Docusate Sodium [Dok] 100 mg PO BID PRN 03/21/16 [History] Estradiol [Estrace] 1 appl VG SUTUTH 03/21/16 [History] Furosemide [Lasix] 20 mg PO DAILY 03/21/16 [History] Gabapentin [Neurontin] 100 mg PO TID 03/21/16 [History] Levothyroxine Sodium [Levo-T] 125 mcg PO DAILY 03/21/16 [History] Menthol/Zinc Ox/Aloe/Randi Oil [Chamosyn Ointment] 1 appl TP TID PRN 03/21/16 [History] Methyl Salicylate/Menthol [Bengay] 1 appl TP QID PRN 03/21/16 [History] Metoprolol Tartrate [Lopressor] 12.5 mg PO BID 03/21/16 [History] Multivitamin [Multivitamins] 1 tab PO DAILY 03/21/16 [History] Naphazoline HCl/Zn Sulf/Gly [Clear Eyes Itchy Eye Rlf Drops] 1 drop LEFT EYE Q4HR PRN 03/21/16 [History] Nystatin POWDER [Nystop] 1 appl TP DAILY 03/21/16 [History] Polyethylene Glycol 3350 [MiraLAX] 17 gm PO DAILY PRN 03/21/16 [History] Potassium Chloride [Klor-Con 10] 10 meq PO BID 03/21/16 [History] Ranitidine HCl [Acid Diesel Locomotive Firer] 150 mg PO BID 03/21/16 [History] Simvastatin [Zocor] 20 mg PO DAILY 03/21/16 [History] Timolol Maleate [Istalol] 1 drop BOTH EYES DAILY 03/21/16 [History] Travoprost [Travatan Z] 1 drop BOTH EYES HS 03/21/16 [History] GuaiFENesin ER [Mucinex] 600 mg PO BID #10 tbbp.12hr 03/23/16 [Rx] Tramadol HCl [Ultram] 50 mg PO QID #30 tablet 03/23/16 [Rx] Allergy/AdvReac Type Severity Reaction Status Date / Time Dopamine Allergy See Verified 06/22/16 12:35 Comments midazolam Allergy See Verified 06/22/16 12:35 Comments Penicillins Allergy Rash Verified 06/22/16 12:35 Sulfa (Sulfonamide Allergy Rash Verified 06/22/16 12:35 Antibiotics) terfenadine Allergy See Verified 06/22/16 12:35 Comments codeine AdvReac Headache Verified 06/22/16 12:35 ROS unobtainable: due to mental status All Systems PM: A 10-system review of systems was performed and is negative for pertinent findings except as documented above in the HPI. - Constitutional Vitals: Temp Pulse Resp BP Pulse Ox 98.6 F 75 20 127/74 92 02/11/18 12:42 02/11/18 12:42 02/11/18 16:11 02/11/18 12:42 02/11/18 16:11 General appearance: Present: A&O X 1 Exam: see exam - Head Head exam: Present: atraumatic, normocephalic - Eye Eye exam: Present: PERRL - Neck Neck exam general surgery: Present: supple, trachea midline. Absent: lymphadenopathy - Respiratory Respiratory exam: Present: prolonged expiratory phase, wheezes (EXPIRATORY) Additional comments: COURSE BREATH SOUNDS THROUGHOUT AP&L - Cardiovascular Cardiovascular exam: Present: RRR, +S1, +S2. Absent: bradycardia, diastolic murmur, gallop, JVD, rubs, systolic murmur, tachycardia - GI/Abdominal GI/Abdominal exam: Present: normal bowel sounds, soft, no peritoneal signs. Absent: distended, tenderness - Extremities Exam Extremities exam: Present: warm, radial pulses palpable and symmetrical. Absent: calf tenderness, cyanotic, pedal edema - Neurological Exam Neurological exam: Present: alert. Absent: oriented X3, facial droop, speech deficit - Skin Skin exam: Present: dry, intact Internal Med - H&P Results - Labs CBC & Chem 7: 02/11/18 13:30 02/11/18 13:30 Labs: Short CBC 12/15/18 Range/Units 13:30 WBC 8.6 D (4.3-11.1) K/mcL Hgb 11.9 (11.5-15.4) g/dL Hct 37.5 (35.3-44.9) % Plt Count 127 L (140-400) K/mcL Neutrophils # 6.3 (1.6-8.9) K/mcL BMP 02/11/18 13:30 Sodium 143 Potassium 3.8 Chloride 98 Carbon Dioxide 39 H BUN 22 Creatinine 0.79 Glucose 107 H Calcium 9.2 Cardiac Enzymes 02/11/18 Range/Units 13:30 Troponin I < 0.03 (< 0.04) ng/mL - ABG Interpretation ABG results: 02/11/18 14:12 ABG pH 7.44 ABG pCO2 57 H ABG pO2 187 H ABG HCO3 38 H ABG Total CO2 40 H ABG O2 Saturation 100 H ABG Base Excess 12 H - EKG Data -: EKG Interpreted by Myself - EKG Data Prior EKG available for review: yes When compared to previous EKG: there is no significant change EKG comments: PACED RHYTHM WITH ST-T WAVE ELEVATION OR DEPRESSION; NO CHANGES COMPARED TO PRIOR EKG 02/11/18 17:03 - Impressions ITS Impressions Chest X-Ray 02/11/18 12:59 IMPRESSION: Low lung volumes and mild bibasilar atelectasis. No acute cardiopulmonary process. D/ / 02/11/2018 16:52:15 Marcia Montoya MD / bcarter Interpreting Provider: Marcia Montoya MD - Assessment and plan (1) Acute respiratory failure with hypoxia and hypercapnia Current Visit: Yes Status: Acute Assessment and plan: 2/2 an acute exacerbation of COPD CXR without acute pulmonary process Does not appear toxic ABG 7.44, PCO2, PO2 187, HCO3 38; Appears to have chronic hypercapnea Presented with hypoxia to tong setter office with SPO2 in the 70's; sats in the 80's by the time EMS arrived Improved with O2, steroids, aerosols in the ED Per my assessment she continues to have course breath sounds B/L AP&L as well as expiratory wheezing; She does have a prolonged expiratory phase and conversational dyspnea. Admit overnight for observation. Plan Azithromycin 500mg QD Aerosols IV steroids 40mg TID Respiratory support per NC; maintain SPO2 >90% EPCD's for DVT prophylaxis (2) COPD exacerbation Current Visit: Yes Status: Acute (3) Hypoxia Current Visit: Yes Status: Acute (4) A-fib Current Visit: Yes Status: Acute Assessment and plan: per hx rate controlled paced rhythm on ECG Continue BB at home dose when verified Qualifiers: Atrial fibrillation type: chronic Qualified Code(s): I48.2 - Chronic atrial fibrillation (5) CHF (congestive heart failure) Current Visit: Yes Status: Acute Assessment and plan: Per 2016 study; Mild LVH and indeterminate diastolic function not in acute exacerbation resume lasix monitor daily weight and I&O Qualifiers: Heart failure type: diastolic Heart failure chronicity: unspecified Qualified Code(s): I50.30 - Unspecified diastolic (congestive) heart failure (6) HLD (hyperlipidemia) Current Visit: Yes Status: Acute Assessment and plan: Resume statin when verified Qualifiers: Hyperlipidemia type: unspecified Qualified Code(s): E78.5 - Hyperlipidemia, unspecified (7) HTN (hypertension) Current Visit: Yes Status: Acute Assessment and plan: Controlled Continue anti-HTN meds when verified Qualifiers: Hypertension type: unspecified Qualified Code(s): I10 - Essential (primary) hypertension (8) Hypothyroidism Current Visit: Yes Status: Acute Assessment and plan: resume synthroid Qualifiers: Hypothyroidism type: unspecified Qualified Code(s): E03.9 - Hypothyroidism, unspecified - Time Spent With Patient Total time spent is greater than 50% in coordination of care (as documented) at patient's floor/unit and/or counseling patient: less than 15 minutes
[2018-02-11] MEDS: Ipratropium/Albuterol Neb 3 ML IH SCH ×2 (20:01→23:48)
[2018-02-11] MEDS: Aspirin Enteric Coated 81 MG Tablet PO SCH (22:01)
[2018-02-11] MEDS: MethylPREDNISolone 40 MG/ML VIAL IVP SCH (23:55)
[2018-02-12] MEDS ORDERED: Melatonin 3 MG TABLET PO ONE (00:52)
[2018-02-12] MEDS: Ipratropium/Albuterol Neb 3 ML IH SCH ×2 (03:55→07:58)
[2018-02-12 07:48] LABS: Hematocrit 33.5 % (35.3-44.9); Immature Granulocytes % 0.3 % (0-4); Lymphocytes # 0.5 K/mcL (0.6-4.6); Lymphocytes % 5.1 %; Mean Corpuscular HGB Conc 32.8 g/dL (31.6-35.5); Mean Corpuscular Hemoglobin 34.3 pg (28.0-33.3); Mean Corpuscular Volume 104.4 fL (83.0-100.0); Mean Platelet Volume 10.8 fL (9.4-12.4); Monocytes # 0.1 K/mcL (0.0-1.3); Monocytes % 1.4 %; Neutrophils # 8.5 K/mcL (1.6-8.9); Platelet Count 120 K/mcL (140-400); Red Blood Count 3.21 M/mcL (3.82-4.97); Red Cell Distribution Width 13.7 % (11.5-14.5); Segmented Neutrophils % 93.2 %
[2018-02-12 08:07] LABS: BUN/Creatinine Ratio 29 (6-26); Blood Urea Nitrogen 22 mg/dL (8-23); Calcium 9.6 mg/dL (8.6-10.3); Carbon Dioxide 35 mEq/L (23-29); Chloride 97 mEq/L (98-107); Glucose 171 mg/dL (70-105); Osmolality,Calculated 299 (280-300); Potassium 3.4 mEq/L (3.5-5.1); Sodium 141 mEq/L (136-145); eGFR For Non-African Americans > 60 (> 60)
[2018-02-12] MEDS: Azithromycin 500 MG in D5% in Water 250 ML IVPB SCH (10:00)
[2018-02-12] MEDS: Furosemide 20 MG TABLET PO SCH (10:01)
[2018-02-12] MEDS: MethylPREDNISolone 40 MG/ML VIAL IVP SCH ×2 (10:01→17:21)
--- NOTE | 2018-02-12 10:03 | Internal Med Progress Note ---
Hospitalist Progress Note - Encounter Date of Encounter: 02/12/18 Time of Encounter: 10:00 - Subjective Interval History: Patient seen and examined this morning at bedside. No overnight events. Patient difficult to hear. Patient poor historian. Anxious. Does not offer any complaint as far as her breathing status. No fevers chills overnight. Saturating 92% on nasal cannula. - Exam Vitals: Temp Pulse Resp BP Pulse Ox 98.2 F 72 18 111/62 92 02/12/18 08:07 02/12/18 08:07 02/12/18 08:07 02/12/18 08:07 02/12/18 08:07 Exam: General: In no acute distress. Conversant. Difficult to hear Respiratory exam: absent wheezes, but coarse sound b/l. No crackle, rhonchi Cardiovascular exam: RRR, +S1, +S2. soft systolic murmur, no gallop, rubs. GI/Abdominal exam: Non-tender, Non-distended, normal bowel sounds, soft, no peritoneal signs. Extremities exam: full ROM, 2+ pedal edema, warm, pulses palpable in b/l lower extremities. no calf tenderness Neurological exam: CN II-XII intact, AO X3, no focal deficits. no pronater drift, facial droop, speech deficit Skin exam: chronic dermatitis changes on b/l LE - Assessment and Plan (1) COPD exacerbation Current Visit: Yes Status: Acute (2) Hypoxia Current Visit: Yes Status: Acute (3) Acute respiratory failure with hypoxia and hypercapnia Current Visit: Yes Status: Acute (4) A-fib Current Visit: Yes Status: Acute (5) CHF (congestive heart failure) Current Visit: Yes Status: Acute (6) HLD (hyperlipidemia) Current Visit: Yes Status: Acute (7) HTN (hypertension) Current Visit: Yes Status: Acute (8) Hypothyroidism Current Visit: Yes Status: Acute - Summary of Assessment and Plan Summary of Assessment and Plan: Acute respiratory failure with hypoxia and hypercapnia - Possibly with COPD exacerbation - c/w duonebs, azithromycin, taper solumedrol - c/w supplemental oxgen A-fib - c/w rate control with BB. Currently controlled - paced rhythm on ECG - Will resume home dose once confirmed CHF, diastolic - ECHO from 2016 with mild LVH and indeterminate diastolic function. EF 50-55 - Has pedal edema, CXR without congestoin - c/w lasix, daily weight and I&O HTN (hypertension) - c/w Continue anti-HTN meds when verified Hypothyroidism - c/w synthroid PT/OT consulted Internal Medicine: Result - Labs CBC & Chem 7: 02/12/18 07:26 02/12/18 07:26 Labs: Short CBC 02/11/18 02/12/18 Range/Units 13:30 07:26 WBC 8.6 D 9.1 (4.3-11.1) K/mcL Hgb 11.9 11.0 L (11.5-15.4) g/dL Hct 37.5 33.5 L (35.3-44.9) % Plt Count 127 L 120 L (140-400) K/mcL Neutrophils # 6.3 8.5 (1.6-8.9) K/mcL BMP 02/11/18 02/12/18 13:30 07:26 Sodium 143 141 Potassium 3.8 3.4 L Chloride 98 97 L Carbon Dioxide 39 H 35 H BUN 22 22 Creatinine 0.79 0.77 Glucose 107 H 171 H Calcium 9.2 9.6 Cardiac Enzymes 02/11/18 Range/Units 13:30 Troponin I < 0.03 (< 0.04) ng/mL - ABG Interpretation ABG results: ABG ABG pH 7.44 pH Units (7.32-7.45) 02/11/18 14:12 ABG pCO2 57 mmHg (35-45) H 02/11/18 14:12 ABG pO2 187 mmHg (85-104) H 02/11/18 14:12 ABG O2 Saturation 100 % (95-98) H 02/11/18 14:12 - Impressions Impressions Chest X-Ray 02/11/18 12:59 IMPRESSION: Low lung volumes and mild bibasilar atelectasis. No acute cardiopulmonary process. D/ / 02/11/2018 16:52:15 Marcia Montoya MD / bcarter Interpreting Provider: Marcia Montoya MD Consult Discharge Plan - Plan Referrals: NONE,PCP [Primary Care Provider] - (4) A-fib Qualifiers: Atrial fibrillation type: chronic Qualified Code(s): I48.2 - Chronic atrial fibrillation (5) CHF (congestive heart failure) Qualifiers: Heart failure type: diastolic Heart failure chronicity: unspecified Qualified Code(s): I50.30 - Unspecified diastolic (congestive) heart failure (6) HLD (hyperlipidemia) Qualifiers: Hyperlipidemia type: unspecified Qualified Code(s): E78.5 - Hyperlipidemia, unspecified (7) HTN (hypertension) Qualifiers: Hypertension type: unspecified Qualified Code(s): I10 - Essential (primary) hypertension (8) Hypothyroidism Qualifiers: Hypothyroidism type: unspecified Qualified Code(s): E03.9 - Hypothyroidism, unspecified
[2018-02-12] MEDS ORDERED: Ipratropium/Albuterol Neb 3 ML IH PRN (11:30)
[2018-02-12] MEDS: Aspirin Enteric Coated 81 MG Tablet PO SCH (17:21)
[2018-02-12] MEDS: Famotidine 20 MG TABLET PO SCH (20:50)
[2018-02-13] MEDS: MethylPREDNISolone 40 MG/ML VIAL IVP SCH (05:17)
[2018-02-13 05:35] LABS: Basophils % 0.1 %; Hematocrit 31.6 % (35.3-44.9); Hemoglobin 10.5 g/dL (11.5-15.4); Immature Granulocytes % 0.4 % (0-4); Lymphocytes # 0.7 K/mcL (0.6-4.6); Lymphocytes % 7.1 %; Mean Corpuscular HGB Conc 33.2 g/dL (31.6-35.5); Mean Corpuscular Volume 102.3 fL (83.0-100.0); Mean Platelet Volume 10.8 fL (9.4-12.4); Monocytes # 0.6 K/mcL (0.0-1.3); Monocytes % 5.4 %; Neutrophils # 8.9 K/mcL (1.6-8.9); Platelet Count 130 K/mcL (140-400); Red Blood Count 3.09 M/mcL (3.82-4.97); Red Cell Distribution Width 13.8 % (11.5-14.5)
[2018-02-13 05:58] LABS: BUN/Creatinine Ratio 37 (6-26); Blood Urea Nitrogen 29 mg/dL (8-23); Calcium 9.7 mg/dL (8.6-10.3); Carbon Dioxide 36 mEq/L (23-29); Chloride 98 mEq/L (98-107); Glucose 134 mg/dL (70-105); Osmolality,Calculated 298 (280-300); Potassium 3.8 mEq/L (3.5-5.1); Sodium 140 mEq/L (136-145); eGFR For Non-African Americans > 60 (> 60)
[2018-02-13] MEDS ORDERED: Acetaminophen 325 MG TABLET PO ONE (06:48)
[2018-02-13] MEDS: Azithromycin 500 MG in D5% in Water 250 ML IVPB SCH (07:27)
[2018-02-13] MEDS: Furosemide 20 MG TABLET PO SCH (07:30)
[2018-02-13] MEDS: Famotidine 20 MG TABLET PO SCH (07:31)
--- NOTE | 2018-02-13 13:33 | Internal Med Progress Note ---
Hospitalist Progress Note - Encounter Date of Encounter: 02/13/18 Time of Encounter: 11:35 - Subjective Interval History: Patient seen and examined this morning at bedside. No overnight events. Patient is somewhat upset with nurse due to her IV leaking on her left arm. Patient poor historian. Denies any complain. No fevers chills overnight. Saturating 92% on 2L nasal cannula. - Exam Vitals: Temp Pulse Resp BP Pulse Ox 98.5 F 73 12 139/74 96 02/13/18 10:19 02/13/18 10:19 02/13/18 10:19 02/13/18 10:19 02/13/18 10:19 Exam: General: In no acute distress. Conversant. Difficult to hear Respiratory exam: CTAB . No crackle, rhonchi or wheezing Cardiovascular exam: RRR, +S1, +S2. soft systolic murmur, no gallop, rubs. GI/Abdominal exam: Non-tender, Non-distended, normal bowel sounds, soft, no peritoneal signs. Extremities exam: full ROM, 1+ pedal edema, warm, pulses palpable in b/l lower extremities. no calf tenderness Neurological exam: CN II-XII intact, AO X3, no focal deficits. no pronater drift, facial droop, speech deficit Skin exam: chronic dermatitis changes on b/l LE - Assessment and Plan (1) COPD exacerbation Current Visit: Yes Status: Acute (2) Hypoxia Current Visit: Yes Status: Acute (3) Acute respiratory failure with hypoxia and hypercapnia Current Visit: Yes Status: Acute (4) A-fib Current Visit: Yes Status: Acute (5) CHF (congestive heart failure) Current Visit: Yes Status: Acute (6) HLD (hyperlipidemia) Current Visit: Yes Status: Acute (7) HTN (hypertension) Current Visit: Yes Status: Acute (8) Hypothyroidism Current Visit: Yes Status: Acute - Summary of Assessment and Plan Summary of Assessment and Plan: Acute respiratory failure with hypoxia and hypercapnia - Likely from COPD exacerbation - c/w duonebs, azithromycin, taper solumedrol - c/w supplemental oxgen - significantly improved. A-fib - c/w rate control with BB. Currently controlled - paced rhythm on ECG - Will resume home dose once confirmed Anemia - appears at baseline - monitor for now CHF, diastolic - ECHO from 2016 with mild LVH and indeterminate diastolic function. EF 50-55 - Has pedal edema, CXR without congestoin - c/w lasix, daily weight and I&O HTN (hypertension) - c/w Continue anti-HTN meds when verified Hypothyroidism - c/w synthroid PT/OT pending. - Time Spent with Patient Total time spent is greater than 50% in coordination of care (as documented) at patient's floor/unit and/or counseling patient: Internal Medicine: Result - Labs CBC & Chem 7: 02/13/18 04:58 02/13/18 04:58 Labs: Short CBC 02/13/18 Range/Units 04:58 WBC 10.2 (4.3-11.1) K/mcL Hgb 10.5 L (11.5-15.4) g/dL Hct 31.6 L (35.3-44.9) % Plt Count 130 L (140-400) K/mcL Neutrophils # 8.9 (1.6-8.9) K/mcL BMP 02/13/18 04:58 Sodium 140 Potassium 3.8 Chloride 98 Carbon Dioxide 36 H BUN 29 H Creatinine 0.79 Glucose 134 H Calcium 9.7 - ABG Interpretation ABG results: ABG ABG pH 7.44 pH Units (7.32-7.45) 02/11/18 14:12 ABG pCO2 57 mmHg (35-45) H 02/11/18 14:12 ABG pO2 187 mmHg (85-104) H 02/11/18 14:12 ABG O2 Saturation 100 % (95-98) H 02/11/18 14:12 Consult Discharge Plan - Plan Referrals: NONE,PCP [Primary Care Provider] - (4) A-fib Qualifiers: Atrial fibrillation type: chronic Qualified Code(s): I48.2 - Chronic atrial fibrillation (5) CHF (congestive heart failure) Qualifiers: Heart failure type: diastolic Heart failure chronicity: unspecified Qualified Code(s): I50.30 - Unspecified diastolic (congestive) heart failure (6) HLD (hyperlipidemia) Qualifiers: Hyperlipidemia type: unspecified Qualified Code(s): E78.5 - Hyperlipidemia, unspecified (7) HTN (hypertension) Qualifiers: Hypertension type: unspecified Qualified Code(s): I10 - Essential (primary) hypertension (8) Hypothyroidism Qualifiers: Hypothyroidism type: unspecified Qualified Code(s): E03.9 - Hypothyroidism, unspecified
[2018-02-13 14:32] VITALS: BP 151/88
--- NOTE | 2018-02-13 14:47 | Discharge Summary ---
Orders not resulted at time of discharge: Pending orders 02/11/18 13:30 Culture,Blood [BC] Stat Influenza A/B Antigen [VIR] Stat Date of Encounter: 02/13/18 Time of Encounter: 14:43 - Discharge Diagnosis (1) COPD exacerbation Priority: Primary Status: Acute (2) Hypoxia Priority: Primary Status: Acute (3) Acute respiratory failure with hypoxia and hypercapnia Priority: Primary Status: Acute (4) A-fib Priority: Secondary Status: Acute Qualifiers: Atrial fibrillation type: chronic Qualified Code(s): I48.2 - Chronic atrial fibrillation (5) CHF (congestive heart failure) Priority: Secondary Status: Acute Qualifiers: Heart failure type: diastolic Heart failure chronicity: unspecified Qualified Code(s): I50.30 - Unspecified diastolic (congestive) heart failure (6) HLD (hyperlipidemia) Priority: Secondary Status: Acute Qualifiers: Hyperlipidemia type: unspecified Qualified Code(s): E78.5 - Hyperlipidemia, unspecified (7) HTN (hypertension) Priority: Secondary Status: Acute Qualifiers: Hypertension type: unspecified Qualified Code(s): I10 - Essential (primary) hypertension (8) Hypothyroidism Priority: Secondary Status: Acute Qualifiers: Hypothyroidism type: unspecified Qualified Code(s): E03.9 - Hypothyroidism, unspecified Hospital course: Ms. 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 Patient was found to have COPD exacerbation and was started on steroids and nebulizer treatment and azithromycin. Patient improved over her stay in the day stating the hospital. Patient stable today to be discharged to long term for continued rehabilitation and physical therapy. Finished 2 days of antibiotic and through a course of steroids. Discharge discussed with: patient, nurse, social work - Time Spent with Patient Total time spent providing and/or coordinating discharge services: Greater than 30 minutes (40) - Discharge Medications Prescriptions: Azithromycin 250 mg PO DAILY 2 Days #2 tablet predniSONE [PredniSONE] 40 mg PO DAILY 3 Days #6 tablet Home Medications: Aspirin [Lo-Dose Aspirin EC] 81 mg PO QPM 03/21/16 [History] Buspirone HCl [Buspar] 5 mg PO DAILY 03/21/16 [History] Furosemide [Lasix] 40 mg PO DAILY 03/21/16 [History] Gabapentin [Neurontin] 100 mg PO TID 03/21/16 [History] Metoprolol Tartrate [Lopressor] 12.5 mg PO BID 03/21/16 [History] Multivitamin [Multivitamins] 1 tab PO DAILY 03/21/16 [History] Potassium Chloride [Klor-Con 10] 10 meq PO DAILY 03/21/16 [History] Simvastatin [Zocor] 20 mg PO DAILY 03/21/16 [History] Travoprost [Travatan Z] 1 drop BOTH EYES HS 03/21/16 [History] Acetaminophen [Non-Aspirin] 650 mg PO Q6H PRN 02/13/18 [History] Azithromycin 250 mg PO DAILY 2 Days #2 tablet 02/13/18 [Rx] Calcium 500-Vit D3 200 Caplet 1 tab PO BID 02/13/18 [History] Cyanocobalamin (B-12) [Vitamin B12] 1,000 mcg IM QMONTH 02/13/18 [History] GuaiFENesin ER [Mucinex] 1,200 mg PO BID PRN 02/13/18 [History] Levothyroxine [Synthroid] 150 mcg PO DAILY 02/13/18 [History] [place] 5-325 Tablet 1 tab PO Q6H 02/13/18 [History] Polyethylene Glycol 3350 [MiraLAX] 17 gm PO DAILY 02/13/18 [History] Ranitidine HCl [Acid Folder Tier] 150 mg PO BID 02/13/18 [History] Senna Plus 1 tab PO DAILY 02/13/18 [History] Timolol Maleate 0.25% 1 drop BOTH EYES DAILY 02/13/18 [History] predniSONE [PredniSONE] 40 mg PO DAILY 3 Days #6 tablet 02/13/18 [Rx] Allergies/Adverse Reactions: Allergy/AdvReac Type Severity Reaction Status Date / Time Dopamine Allergy See Verified 06/22/16 12:35 Comments midazolam Allergy See Verified 06/22/16 12:35 Comments Penicillins Allergy Rash Verified 06/22/16 12:35 Sulfa (Sulfonamide Allergy Rash Verified 06/22/16 12:35 Antibiotics) terfenadine Allergy See Verified 06/22/16 12:35 Comments codeine AdvReac Headache Verified 06/22/16 12:35 Date of admission: 02/11/18 16:59 Primary care physician: PCP NONE Consults: 02/11/18 16:57 Consult to Occupational Therapy [CONS] Routine Comment: Evaluate, develop and implement POC Reason for Consult: DECREASED ACTIVITY TOLERANCE, AMBULATORY DYSFUNCTION Does patient have active BEDREST order?: No Is patient medically & hemodynamically stable?: Yes Patient assessed for mobility or mobilized this visit?: No Consult to Physical Therapy [CONS] Routine Comment: Evaluate, develop and implement POC Reason for Consult: DECREASED ACTIVITY TOLERANCE, AMBULATORY DYSFUNCTION Does patient have active BEDREST order?: No Is patient medically & hemodynamically stable?: Yes Patient assessed for mobility or mobilized this visit?: No 02/11/18 19:52 Consult to Refund Specialist [CONS] Routine Reason for SW Consult: from long term 02/13/18 09:18 Consult to Nurse Navigator [CONS] Routine Comment: COPD education Discharging clinician: Husam Montoya - Constitutional Vitals: Temp Pulse Resp BP Pulse Ox 98.3 F 69 16 151/88 92 02/13/18 14:00 02/13/18 14:00 02/13/18 14:00 02/13/18 14:00 02/13/18 14:00 Exam: General: In no acute distress. Conversant. Difficult to hear Respiratory exam: CTAB . No crackle, rhonchi or wheezing Cardiovascular exam: RRR, +S1, +S2. soft systolic murmur, no gallop, rubs. GI/Abdominal exam: Non-tender, Non-distended, normal bowel sounds, soft, no peritoneal signs. Extremities exam: full ROM, 1+ pedal edema, warm, pulses palpable in b/l lower extremities. no calf tenderness Neurological exam: CN II-XII intact, AO X3, no focal deficits. no pronater drift, facial droop, speech deficit Skin exam: chronic dermatitis changes on b/l LE - Patient Status Disposition: Transfer SNF Condition: Fair - Discharge Instructions Follow Up With: NONE,PCP [Primary Care Provider] - - Diet and Activity Activity: as per physical therapy
--- NOTE | 2018-02-13 14:52 | Electrocardiograph Report ---
[place] [id number] Test Date: 2018-02-11 Pat Name: Aishwarya Davila Department: EXAM19 Room: 3A43 Gender: F Caul Dresser: : [id number] Requested By: Oni Shukla Order Number: [id number] Reading MD: Conor Engel Measurements Intervals [place] Rate: 70 P: DC: QRS: -88 QRSD: 151 T: 95 QT: 392 QTc: 423 Interpretive Statements Atrial fibrillation IVCD, possibly paced rhythm Electronically Signed On 02-13-2018 14:50:52 EST by Conor Engel
--- NOTE | 2018-02-13 15:03 | Physician Discharge Referral ---
ExtendedCare Referral Info Institutional Level of Care: Skilled - Diagnosis (1) COPD exacerbation Status: Acute (2) Hypoxia Status: Acute (3) Acute respiratory failure with hypoxia and hypercapnia Status: Acute (4) A-fib Status: Acute (5) CHF (congestive heart failure) Status: Acute (6) HLD (hyperlipidemia) Status: Acute (7) HTN (hypertension) Status: Acute (8) Hypothyroidism Status: Acute - Transfer Medications Prescriptions: Azithromycin 250 mg PO DAILY 2 Days #2 tablet predniSONE [PredniSONE] 40 mg PO DAILY 3 Days #6 tablet Home Medications: Aspirin [Lo-Dose Aspirin EC] 81 mg PO QPM 03/21/16 [History] Buspirone HCl [Buspar] 5 mg PO DAILY 03/21/16 [History] Furosemide [Lasix] 40 mg PO DAILY 03/21/16 [History] Gabapentin [Neurontin] 100 mg PO TID 03/21/16 [History] Metoprolol Tartrate [Lopressor] 12.5 mg PO BID 03/21/16 [History] Multivitamin [Multivitamins] 1 tab PO DAILY 03/21/16 [History] Potassium Chloride [Klor-Con 10] 10 meq PO DAILY 03/21/16 [History] Simvastatin [Zocor] 20 mg PO DAILY 03/21/16 [History] Travoprost [Travatan Z] 1 drop BOTH EYES HS 03/21/16 [History] Acetaminophen [Non-Aspirin] 650 mg PO Q6H PRN 02/13/18 [History] Azithromycin 250 mg PO DAILY 2 Days #2 tablet 02/13/18 [Rx] Calcium 500-Vit D3 200 Caplet 1 tab PO BID 02/13/18 [History] Cyanocobalamin (B-12) [Vitamin B12] 1,000 mcg IM QMONTH 02/13/18 [History] GuaiFENesin ER [Mucinex] 1,200 mg PO BID PRN 02/13/18 [History] Levothyroxine [Synthroid] 150 mcg PO DAILY 02/13/18 [History] [place] 5-325 Tablet 1 tab PO Q6H 02/13/18 [History] Polyethylene Glycol 3350 [MiraLAX] 17 gm PO DAILY 02/13/18 [History] Ranitidine HCl [Acid Collections Assistant] 150 mg PO BID 02/13/18 [History] Senna Plus 1 tab PO DAILY 02/13/18 [History] Timolol Maleate 0.25% 1 drop BOTH EYES DAILY 02/13/18 [History] predniSONE [PredniSONE] 40 mg PO DAILY 3 Days #6 tablet 02/13/18 [Rx] Allergies/Adverse Reactions: Allergy/AdvReac Type Severity Reaction Status Date / Time Dopamine Allergy See Verified 06/22/16 12:35 Comments midazolam Allergy See Verified 06/22/16 12:35 Comments Penicillins Allergy Rash Verified 06/22/16 12:35 Sulfa (Sulfonamide Allergy Rash Verified 06/22/16 12:35 Antibiotics) terfenadine Allergy See Verified 06/22/16 12:35 Comments codeine AdvReac Headache Verified 06/22/16 12:35 - Respiratory Orders Smoking Cessation: Smoking cessation has been advised. For more information, call the [place] Tobacco Quit Line at 1-238-BWYG-NOW. - Rehabiliation Orders Rehab Orders: Evaluation for Physical Therapy, Evaluation for Occupational Therapy Other: Will need aides as well CERTIFICATION: I certify that the transfer of the above named patient to an Extended Care Facility is necessary for the continuing treatment of the diagnosis listed. The above information is true and accurate reflection of patient's current condition. Confidential - Redisclosure prohibited without a patient's written consent.
[2018-02-13] MEDS ORDERED: Famotidine 20 MG TABLET PO SCH (21:00)
[2018-02-14] MEDS ORDERED: MethylPREDNISolone 40 MG/ML VIAL IVP SCH (09:00)
== END 2018-02-13 16:16 ==
LOC: 3ANU 12:41 → EMEROOARM 12:41 → SUATTDRO 16:59 → 3ANU 20:39
PROVIDERS: ADMIT Internal Medicine; ATTEND Internal Medicine

== ENCOUNTER 2018-07-24 11:18 | Observation (INO) ==
[2018-07-24] MEDS ORDERED: Isovue-370 500 ML BOTTLE IVP ONE (11:29)
[2018-07-24] MEDS ORDERED: *HR* FentaNYL (PF) 100 MCG/2 ML VIAL IVP ONE ×2 (11:30→15:29)
--- NOTE | 2018-07-24 12:00 | Emergency Department Note ---
Disposition Clinical Impression: Compression fracture, Weakness UTI (urinary tract infection) Qualifiers: Urinary tract infection type: site unspecified Hematuria presence: without hematuria Qualified Code(s): N39.0 - Urinary tract infection, site not specified Disposition: Admitted As Inpatient Condition: Fair Time of Disposition: 15:48 General Adult HPI - General Chief complaint: ED General Medical Stated complaint: Back Pain Time Seen by Provider: 07/24/18 11:27 Source: patient, EMS Mode of arrival: EMS Limitations: no limitations Nursing Notes Reviewed: Yes Vital Signs Reviewed: Yes - History of Present Illness HPI Narrative: 82 yo female with a history of CHF, A. fib, CVA transfer evaluation of generalized weakness and malaise. Patient presented [facility]. Patient states she has been having some diffuse pain "everywhere". States that her pain is primarily in her back. Patient also notes some chest pain last night that has since resolved. Patient states she did have one episode of emesis. No sweating. No abdominal pain no diarrhea or constipation. Patient denies any recent falls but states she has fallen in the past. Patient typically his tramadol to help with her pain and did receive a earlier today but has not improved her symptoms. Pain Scale: 8 - Related Data Home Medications Medication Instructions Recorded Confirmed Aspirin [Lo-Dose Aspirin EC] 81 mg PO QAM 03/21/16 03/13/18 Furosemide [Lasix] 40 mg PO 0800 03/21/16 03/13/18 Gabapentin [Neurontin] 100 mg PO TID 03/21/16 03/13/18 Metoprolol Tartrate [Lopressor] 12.5 mg PO BID 03/21/16 03/13/18 Multivitamin [Multivitamins] 1 cap PO QAM 03/21/16 03/13/18 Potassium Chloride [Klor-Con 10] 10 meq PO QAM 03/21/16 03/13/18 Simvastatin [Zocor] 20 mg PO QPM 03/21/16 03/13/18 Travoprost [Travatan Z] 1 drop BOTH EYES HS 03/21/16 03/13/18 Acetaminophen [Non-Aspirin] 650 mg PO Q6H PRN 02/13/18 03/13/18 Calcium Carbonate/Vitamin D3 1 tab PO BID #0 02/13/18 03/13/18 [Calcium 500 + Vit D Caplet] Cyanocobalamin (B-12) [Vitamin B12] 1,000 mcg IM QMONTH 02/13/18 03/13/18 GuaiFENesin ER [Mucinex] 1,200 mg PO BID PRN 02/13/18 03/13/18 Levothyroxine [Synthroid] 150 mcg PO DAILY 02/13/18 03/13/18 Polyethylene Glycol 3350 [MiraLAX] 17 gm PO QAM 02/13/18 03/13/18 Ranitidine HCl [Acid Cover Assembler] 150 mg PO BID 02/13/18 03/13/18 Sennosides/Docusate Sodium 1 tab PO QAM #0 02/13/18 03/13/18 [Senna-Docusate Sodium Tablet] Buspirone HCl [Buspar] 30 mg PO BID 03/13/18 03/13/18 Furosemide [Lasix] 20 mg PO 1700 03/13/18 03/13/18 Melatonin [Melatin] 3 mg PO HS 03/13/18 03/13/18 Menthol/Zinc Ox/Aloe/Randi Oil 5 gm TP BID 03/13/18 03/13/18 [Chamosyn Ointment] Nystatin POWDER [Nystop] 1 appl TP TID PRN MDD + 03/13/18 03/13/18 Tramadol HCl [Ultram] 50 mg PO Q6H 03/13/18 03/13/18 Allergies Allergy/AdvReac Type Severity Reaction Status Date / Time Dopamine Allergy See Verified 06/22/16 12:35 Comments midazolam Allergy See Verified 06/22/16 12:35 Comments Penicillins Allergy Rash Verified 06/22/16 12:35 Sulfa (Sulfonamide Allergy Rash Verified 06/22/16 12:35 Antibiotics) terfenadine Allergy See Verified 06/22/16 12:35 Comments codeine AdvReac Headache Verified 06/22/16 12:35 All systems ED: reviewed and negative except as stated. Constitutional: Denies: fever Cardiovascular: Reports: chest pain Respiratory: Denies: cough, dyspnea Gastrointestinal: Reports: nausea, vomiting. 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) Psychiatric history: Reports: anxiety, other TRANSPORTATION AID history: Reports: no TRANSPORTATION AID history - Social History Smoking Status: Never smoker Smokeless Tobacco Status: No Alcohol use: Reports: none Drug use: Reports: none Physical Exam - General Limitations: no limitations General appearance: alert - Head Head exam: atraumatic, normocephalic, normal inspection - Eye Eye exam: Present: normal appearance, PERRL, EOMI - ENT ENT exam: normal exam, normal oropharynx, mucous membranes moist - Neck Neck exam: Present: normal inspection - Chest Chest inspection: Present: normal inspection - Respiratory Respiratory exam: Present: normal lung sounds bilaterally. Absent: respiratory distress - Cardiovascular Cardiovascular exam: Present: regular rate, normal rhythm, normal heart sounds - Abdominal Exam Abdominal exam: Present: soft, Non-Tender. Absent: guarding, rebound - Extremities Exam Extremities exam: Present: pedal edema (trace) - Back Exam Back exam: Present: normal inspection, tenderness (Upper thoracic midline tho racic). Absent: CVA tenderness (R), CVA tenderness (L) - Psychiatric Psychiatric exam: Present: normal affect - Skin Skin exam: Present: warm, dry, intact, normal color Course Course Narrative: Patient is complaining of primarily general malaise. Patient's also complaining of back pain. Patient does have reproducible back tenderness on her age and history of chest pain recently patient will get CT imaging as well as basic labs urinalysis. Disposition pending. - Reevaluation(s) Reevaluation #1: Patient seen and examined. Patient's ED course discussed with her. Patient states she has fallen in the past month or so. Patient does have some reversible tenderness to spine. Patient will be admitted for pain control as well as concerns of UTI. Time: 15:32 - Consultations Consultation #1: Did speak with Spine surgery who recommends getting an MRI. Time: 15:30 Vital Signs Temperature 97.7 F 07/24/18 11:23 Pulse Rate 72 07/24/18 11:23 Respiratory Rate 18 07/24/18 11:23 Blood Pressure 150/93 07/24/18 11:23 O2 Sat by Pulse Oximetry 100 07/24/18 11:23 Temperature 97.7 F 07/24/18 11:23 Pulse Rate 78 07/24/18 14:11 Respiratory Rate 18 07/24/18 11:23 Blood Pressure 119/55 07/24/18 14:11 O2 Sat by Pulse Oximetry 100 07/24/18 14:11 Oxygen Delivery Oxygen Delivery Nasal Cannula Medical Decision Making - MDM Narrative Medical decision making narrative: Patient presented for concerns of multiple complaints. Patient was a very poor start upon arrival. Ultimately she is complaining of back pain without any recent trauma but does have prior history of falls. Patient initially was not complaining of any abdominal pain however during the ED course the patient was complaining of belly pain. Patient did get CT scanning of the head thoracic lumbar and cervical. Also CT of the chest and abdomen pelvis. Patient was found to have a UTI. Patient also found to have a T8 compression fracture which was age-indeterminate but the patient is tender. Did consult spine direct is getting MRI they will evaluate the patient tomorrow. Patient is neurovascularly intact. - Lab Data Lab results reviewed: Yes I reviewed the patient's lab results. Result diagrams: 07/24/18 11:58 07/24/18 11:58 Lab Results 07/24/18 07/24/18 07/24/18 Range/Units 11:58 11:58 11:58 WBC 6.4 (4.3-11.1) K/mcL RBC 3.16 L (3.82-4.97) M/mcL Hgb 10.5 L (11.5-15.4) g/dL Hct 33.2 L (35.3-44.9) % MCV 105.1 H (83.0-100.0) fL MCH 33.2 (28.0-33.3) pg MCHC 31.6 (31.6-35.5) g/dL RDW 13.7 (11.5-14.5) % Plt Count 151 (140-400) K/mcL MPV 10.3 (9.4-12.4) fL Immature Gran % 0.3 (0-4) % Seg Neutrophils % 72.7 % Lymphocytes % 13.8 % Monocytes % 12.2 % Eosinophils % 0.5 % Basophils % 0.5 % Neutrophils # 4.7 (1.6-8.9) K/mcL Lymphocytes # 0.9 (0.6-4.6) K/mcL Monocytes # 0.8 (0.0-1.3) K/mcL Eosinophils # 0.0 (0.0-0.6) K/mcL Basophils # 0.0 (0.0-0.2) K/mcL Sodium 141 (136-145) mEq/L Potassium 3.9 (3.5-5.1) mEq/L Chloride 97 L (98-107) mEq/L Carbon Dioxide 38 H (23-29) mEq/L BUN 12 (8-23) mg/dL Creatinine 0.81 (0.60-1.20) mg/dL Est GFR ( Amer) > 60 (> 60) Est GFR (Non-Af Amer) > 60 (> 60) BUN/Creatinine Ratio 15 (6-26) Glucose 97 (70-105) mg/dL Calculated Osmolality 292 (280-300) Lactic Acid 0.7 (0.5-2.2) mmol/L Calcium 9.4 (8.6-10.3) mg/dL Total Bilirubin 1.5 H (0.3-1.0) mg/dL AST 24 (13-39) Units/L ALT 8 (7-52) Units/L Alkaline Phosphatase 90 (34-104) Units/L Troponin I < 0.03 (< 0.04) ng/mL Serum Total Protein 6.6 (6.4-8.9) g/dL Albumin 3.8 (3.5-5.7) g/dL Globulin 2.8 (2.4-3.5) g/dL Albumin/Globulin Ratio 1.4 (1.1-2.2) Lipase 7 L (11-82) Units/L Urine Color (Yellow) Urine Clarity (Clear) Urine pH (5.0-8.0) pH Units Ur Specific [place] (1.010-1.025) Urine Protein (Neg-Trace) mg/dL Urine Glucose (UA) (Normal) mg/dL Urine Ketones (Negative) mg/dL Urine Blood (Negative) Urine Nitrite (Negative) Urine Bilirubin (Negative) Urine Urobilinogen (Normal) mg/dL Ur Leukocyte Esterase (Negative) Urine Microscopic RBC (0-3) per hpf Urine Microscopic WBC (0-3) per hpf Ur Squamous Epith Cells (None-Few) per lpf Urine Bacteria (None-Few) per hpf Hyaline Casts (None-Few) per lpf Ur Culture Indicated? (NO) 07/24/18 Range/Units 12:45 WBC (4.3-11.1) K/mcL RBC (3.82-4.97) M/mcL Hgb (11.5-15.4) g/dL Hct (35.3-44.9) % MCV (83.0-100.0) fL MCH (28.0-33.3) pg MCHC (31.6-35.5) g/dL RDW (11.5-14.5) % Plt Count (140-400) K/mcL MPV (9.4-12.4) fL Immature Gran % (0-4) % Seg Neutrophils % % Lymphocytes % % Monocytes % % Eosinophils % % Basophils % % Neutrophils # (1.6-8.9) K/mcL Lymphocytes # (0.6-4.6) K/mcL Monocytes # (0.0-1.3) K/mcL Eosinophils # (0.0-0.6) K/mcL Basophils # (0.0-0.2) K/mcL Sodium (136-145) mEq/L Potassium (3.5-5.1) mEq/L Chloride (98-107) mEq/L Carbon Dioxide (23-29) mEq/L BUN (8-23) mg/dL Creatinine (0.60-1.20) mg/dL Est GFR ( Amer) (> 60) Est GFR (Non-Af Amer) (> 60) BUN/Creatinine Ratio (6-26) Glucose (70-105) mg/dL Calculated Osmolality (280-300) Lactic Acid (0.5-2.2) mmol/L Calcium (8.6-10.3) mg/dL Total Bilirubin (0.3-1.0) mg/dL AST (13-39) Units/L ALT (7-52) Units/L Alkaline Phosphatase (34-104) Units/L Troponin I (< 0.04) ng/mL Serum Total Protein (6.4-8.9) g/dL Albumin (3.5-5.7) g/dL Globulin (2.4-3.5) g/dL Albumin/Globulin Ratio (1.1-2.2) Lipase (11-82) Units/L Urine Color Yellow (Yellow) Urine Clarity Slightly Hazy (Clear) Urine pH 7.5 (5.0-8.0) pH Units Ur Specific [place] < 1.005 L (1.010-1.025) Urine Protein Negative (Neg-Trace) mg/dL Urine Glucose (UA) Normal (Normal) mg/dL Urine Ketones Negative (Negative) mg/dL Urine Blood Trace H (Negative) Urine Nitrite Positive A (Negative) Urine Bilirubin Negative (Negative) Urine Urobilinogen Normal (Normal) mg/dL Ur Leukocyte Esterase Large H (Negative) Urine Microscopic RBC 0-3 (0-3) per hpf Urine Microscopic WBC TNTC H (0-3) per hpf Ur Squamous Epith Cells Moderate H (None-Few) per lpf Urine Bacteria Moderate H (None-Few) per hpf Hyaline Casts None Seen (None-Few) per lpf Ur Culture Indicated? YES A (NO) - Radiology Data Radiology results reviewed: Yes I reviewed the patient's radiology results. Chest X-Ray 07/24/18 11:28 IMPRESSION: No acute cardiopulmonary process. D/ / 07/24/2018 12:05:20 Riccardo Fitch MD / Jeanne Jeronimo Interpreting Provider: Riccardo Fitch MD Head CT 07/24/18 11:28 IMPRESSION: No acute intracranial abnormality. Scattered foci of soft tissue gas present involving the soft tissues of the face on the right, incompletely evaluated. Consider correlation with maxillofacial CT if clinically indicated. D/ / 07/24/2018 14:15:02 Riccardo Fitch MD / Jeanne Jeronimo Interpreting Provider: Riccardo Fitch MD CT Dissection 07/24/18 11:29 IMPRESSION: 1. Cardiomegaly with findings suggesting mild pulmonary edema. 2. Small right pleural effusion and bibasilar atelectasis. 3. No acute intra-abdominal process identified. Evaluation of the intra-abdominal structures limited due to arm positioning and resultant quantum mottle artifact. 4. Extensive colonic diverticulosis without CT evidence for diverticulitis. 5. No acute vascular injury or aortic dissection identified. 6. Please see CT thoracic and lumbar spine report same day for spine findings. D/ / Jonas Carroll MD / Jonas Carroll MD Interpreting Provider: Jonas Carroll MD Cervical Spine CT 07/24/18 11:29 IMPRESSION: No convincing evidence of acute osseous abnormalities within cervical spine. Examination was severely motion degraded. D/ / 07/24/2018 14:57:22 Antwon Montoya MD / noris Interpreting Provider: Antwon Montoya MD Lumbar Spine CT 07/24/18 11:29 IMPRESSION: Unchanged vertebral body height loss involving multiple lumbar vertebral bodies are of varying degree, as detailed above. Unchanged grade 1-2 anterolisthesis of L4 relative to L5. Unchanged cortical stump of involving L3 vertebral body. No new osseous abnormalities identified within lumbar spine. Please note evaluation for nondisplaced fracture is limited due to severe osteopenia and patient's positioning. D/ / 07/24/2018 15:10:06 Antwon Montoya MD / noris Interpreting Provider: Antwon Montoya MD Thoracic Spine CT 07/24/18 11:30 IMPRESSION: Age-indeterminate compression inferior endplate T8 could be acute, new compared with CT a chest 08/05/2017. Multilevel chronic wedge compression fractures T4, T5, T6,T11 and L1, age indeterminate D/ / Sd Gomez / Sd Gomez Interpreting Provider: Sd Gomez - EKG Data EKG #1 EKG attestation: Yes I reviewed and interpreted this EKG. Rate: normal Rhythm: A.Fib [place]/QRS: left axis deviation Interpretation: nonspecific ST-T wave changes S.B.A.RChloe - S.B.A.RChloe Situation: Demographics Background: Presenting Complaint Assessment: Vital Signs, Course and respsone to treatment, Patient/Family Expectation Recommendation: Barrier(s) to disposition, Recommendation based on pending studies, treatments, or consults S.B.A.RChloe Report Given to: Hospitalist Rahel Repor Time: 15:47 Attestation Statement - Attestation Attestation: Patient was seen with resident physician. I reviewed the history, physical, assessment and plan, and agree with the findings. I also personally evaluated this patient and had [id number] time with this patient. 82-year-old female presents emergency Department with very poor history and either abdominal or back pain.. Patient states the last couple days she has had more abdominal pain. She told the resident physician he had back pain. Not really clear. But she denies chest pain shortness of breath. She has had one episode of nausea vomiting, but no diarrhea. Review of systems as above remainder negative to the best of our ability again patient is a very poor historian. Physical exam vital signs are stable on arrival. ENT is unremarkable there. Heart regular rhythm and rate. Lungs were clear. Abdomen is soft I could not elicit much tenderness. She said was somewhat diffuse. Extremities unremarkable. Back exam had some tenderness with palpation diffusely there as well. Neurologically she is alert she moves all extremities she asked appropriate questions. Skin some bruises but no real signs of trauma. And psych somewhat of a flat affect. ED course. Because the patient such a bad historian where really going to need to do a variety CT scans and lab tests. She did have a UTI. CT scan revealed a new compression fracture. With the combination of potential new fracture with UTI wanted to admit for further evaluation and treatment, to make sure she is safe to go back to the [facility] at some point. We discussed this with the hospitalist service agreed to accept the patient for admission. Patient was also started on antibiotics. Agree with resident physician assessment and plan.
[2018-07-24 12:09] LABS: Basophils % 0.5 %; Eosinophils % 0.5 %; Hematocrit 33.2 % (35.3-44.9); Hemoglobin 10.5 g/dL (11.5-15.4); Immature Granulocytes % 0.3 % (0-4); Lymphocytes # 0.9 K/mcL (0.6-4.6); Lymphocytes % 13.8 %; Mean Corpuscular HGB Conc 31.6 g/dL (31.6-35.5); Mean Corpuscular Hemoglobin 33.2 pg (28.0-33.3); Mean Corpuscular Volume 105.1 fL (83.0-100.0); Mean Platelet Volume 10.3 fL (9.4-12.4); Monocytes # 0.8 K/mcL (0.0-1.3); Monocytes % 12.2 %; Neutrophils # 4.7 K/mcL (1.6-8.9); Platelet Count 151 K/mcL (140-400); Red Blood Count 3.16 M/mcL (3.82-4.97); Red Cell Distribution Width 13.7 % (11.5-14.5); Segmented Neutrophils % 72.7 %
[2018-07-24 12:31] LABS: Alanine Aminotransferase 8 Units/L (7-52); Albumin 3.8 g/dL (3.5-5.7); Albumin/Globulin Ratio 1.4 (1.1-2.2); Alkaline Phosphatase 90 Units/L (34-104); Aspartate Amino Transferase 24 Units/L (13-39); BUN/Creatinine Ratio 15 (6-26); Bilirubin,Total 1.5 mg/dL (0.3-1.0); Blood Urea Nitrogen 12 mg/dL (8-23); Calcium 9.4 mg/dL (8.6-10.3); Carbon Dioxide 38 mEq/L (23-29); Chloride 97 mEq/L (98-107); Globulin 2.8 g/dL (2.4-3.5); Glucose 97 mg/dL (70-105); Lipase 7 Units/L (11-82); Osmolality,Calculated 292 (280-300); Potassium 3.9 mEq/L (3.5-5.1); Sodium 141 mEq/L (136-145); Total Protein 6.6 g/dL (6.4-8.9); Troponin I < 0.03 ng/mL (< 0.04); eGFR For Non-African Americans > 60 (> 60)
[2018-07-24 12:57] LABS: Bilirubin,Urine Negative (Negative); Blood,Urine Trace (Negative); Color,Urine Yellow (Yellow); Glucose,Urine (UA) Normal (Normal); Ketones,Urine Negative (Negative); Leukocyte Esterase,Urine Large (Negative); Nitrite,Urine Positive (Negative); PH,Urine 7.5 pH Units (5.0-8.0); Protein,Urine Negative (Neg-Trace); Specific Gravity,Urine < 1.005 (1.010-1.025); Urobilinogen,Urine Normal (Normal)
[2018-07-24 12:59] LABS: Bacteria,Urine Moderate per hpf (None-Few); Hyaline Casts,Urine None Seen per lpf (None-Few); RBC,Urine 0-3 per hpf (0-3); Squamous Epithelial Cell,Urine Moderate per lpf (None-Few); WBC,Urine TNTC per hpf (0-3)
[2018-07-24 13:03] LABS: Clarity,Urine Slightly Hazy (Clear)
[2018-07-24] MEDS ORDERED: cefTRIAXone 1,000 MG in Water for inj. (sterile) 20 ML 10 ML IVP ONE (13:10)
--- NOTE | 2018-07-24 16:50 | Internal Med History&Physical ---
Date of Encounter: 07/24/18 Time of Encounter: 16:15 Internal Medicine - H&P: HPI Chief complaint: Abdominal pain, back pain Admitted From: Long-term Nursing Facility History of present illness: History is limited due to patient's underlying cognitive impairment. Ms. Davila is a 82 year old female with history of Diastolic CHF, CAD s/p CABG, Afib s/p pacemaker insertion, Chronic macrocytic anemia, COPD on 3L NC continuously at [facility], CVA, hypothyroidism, who presented to the ED from long-term nursing facility due to generalized pain. When she was asked specifically on the most boothersome symptoms, she does point to her abdomen as well as lower back. Denies any chest pain, shortness of breath, palpitation, worsening leg swelling. Other than abdominal pain, denies any change in bowel habits, dysuria, hematuria, or urinary frequency. No fever/chills, nausea/vomiting, diaphoresis, or recent sick contacts. She does admit that she had fallen backwards onto her back a few weeks ago. In the ED, she was afebrile and hemodynamically stable. Labwork was largely unremarkable including CBC, BMP, lactic acid, troponin, and lipase. Urinalysis showed LE and nitrite. She had multiple imaging studies done which were mainly notable for possible new T8 compression fracture. Otherwise, she had chronic compression fractures at multiple levels along her thoracic and lumbar spines. CT dissection study was negative. Chest x-ray was also unremarkable. She was given a dose of IV Rocephin, fentanyl, and admitted with spine surgical consultation. Past Med Surg Social Fam HX - Past Medical History Attestation: Yes The following information was validated with the patient. Medical history: atrial fibrillation, CHF, CVA, GERD, hyperlipidemia, hyp ertension, RA, renal disease, thyroid disease Psychiatric history: anxiety, other - Past Surgical History Surgical History: coronary bypass (CABG) - Social History Smoking Status: Never smoker Smokeless Tobacco Status: No Alcohol use: none Drug use: none - Family History Father Living Status: Hx Family Cardiac Disorders: Yes Hx Family Respiratory Disorders: No Hx Family Cancer: No Hx Family GI Disorders: No Hx Family Endocrine Disorder: No Hx Family Neuromuscular Disorders: No Hx Family Neurologic Disorders: No Hx Family HEENT Disorders: No Hx Family Autoimmune Disorders: No Internal Medicine - H&P: Meds Aspirin [Lo-Dose Aspirin EC] 81 mg PO QAM 03/21/16 [History] Furosemide [Lasix] 40 mg PO 0800 03/21/16 [History] Gabapentin [Neurontin] 100 mg PO TID 03/21/16 [History] Metoprolol Tartrate [Lopressor] 12.5 mg PO BID 03/21/16 [History] Multivitamin [Multivitamins] 1 cap PO QAM 03/21/16 [History] Potassium Chloride [Klor-Con 10] 10 meq PO QAM 03/21/16 [History] Simvastatin [Zocor] 20 mg PO QPM 03/21/16 [History] Travoprost [Travatan Z] 1 drop BOTH EYES HS 03/21/16 [History] Acetaminophen [Non-Aspirin] 650 mg PO Q6H PRN 02/13/18 [History] Calcium Carbonate/Vitamin D3 [Calcium 500 + Vit D Caplet] 1 tab PO BID #0 02/13/18 [History] Cyanocobalamin (B-12) [Vitamin B12] 1,000 mcg IM QMONTH 02/13/18 [History] GuaiFENesin ER [Mucinex] 1,200 mg PO BID PRN 02/13/18 [History] Levothyroxine [Synthroid] 150 mcg PO DAILY 02/13/18 [History] Polyethylene Glycol 3350 [MiraLAX] 17 gm PO QAM 02/13/18 [History] Ranitidine HCl [Acid Rn Transitional] 150 mg PO BID 02/13/18 [History] Sennosides/Docusate Sodium [Senna-Docusate Sodium Tablet] 1 tab PO QAM #0 02/13/18 [History] Buspirone HCl [Buspar] 30 mg PO BID 03/13/18 [History] Furosemide [Lasix] 20 mg PO 1700 03/13/18 [History] Melatonin [Melatin] 3 mg PO HS 03/13/18 [History] Menthol/Zinc Ox/Aloe/Randi Oil [Chamosyn Ointment] 5 gm TP BID 03/13/18 [History] Nystatin POWDER [Nystop] 1 appl TP TID PRN MDD + 03/13/18 [History] Tramadol HCl [Ultram] 50 mg PO Q6H 03/13/18 [History] Allergy/AdvReac Type Severity Reaction Status Date / Time Dopamine Allergy See Verified 06/22/16 12:35 Comments midazolam Allergy See Verified 06/22/16 12:35 Comments Penicillins Allergy Rash Verified 06/22/16 12:35 Sulfa (Sulfonamide Allergy Rash Verified 06/22/16 12:35 Antibiotics) terfenadine Allergy See Verified 06/22/16 12:35 Comments codeine AdvReac Headache Verified 06/22/16 12:35 All Systems PM: A 10-system review of systems was performed and is negative for pertinent findings except as documented above in the HPI. - Constitutional Vitals: Temp Pulse Resp BP Pulse Ox 97.7 F 78 18 119/55 100 07/24/18 11:23 07/24/18 14:11 07/24/18 11:23 07/24/18 14:11 07/24/18 14:11 Exam: General: Alert and oriented, not in acute distress. HEENT: Pupils equal, round and reactive. Cardiovascular:Normal S1 & S2, No JVD. Pulse regular. Lungs: clear to auscultation, no wheezes/rales Abdomen:Soft, generalized tenderness including suprapubic region. No rebound/guarding/rigidity : No CVA tenderness MSK: Point tenderness along the lower thoracic and upper lumbar spine. No step deformity appreciated Neurological: Grossly non-focal, moving both LEs well without difficulty, no numbness Skin:Normal color, no rash, no lesions. Pulses:Carotid and radial pulses normal +2. Rest of the physical exam is non contributory Internal Med - H&P Results - Labs CBC & Chem 7: 07/24/18 11:58 07/24/18 11:58 Labs: Short CBC 07/24/18 Range/Units 11:58 WBC 6.4 (4.3-11.1) K/mcL Hgb 10.5 L (11.5-15.4) g/dL Hct 33.2 L (35.3-44.9) % Plt Count 151 (140-400) K/mcL Neutrophils # 4.7 (1.6-8.9) K/mcL BMP 07/24/18 11:58 Sodium 141 Potassium 3.9 Chloride 97 L Carbon Dioxide 38 H BUN 12 Creatinine 0.81 Glucose 97 Calcium 9.4 Cardiac Enzymes 07/24/18 Range/Units 11:58 Troponin I < 0.03 (< 0.04) ng/mL Liver Function 07/24/18 Range/Units 11:58 Total Bilirubin 1.5 H (0.3-1.0) mg/dL AST 24 (13-39) Units/L ALT 8 (7-52) Units/L Alkaline Phosphatase 90 (34-104) Units/L Albumin 3.8 (3.5-5.7) g/dL Urine 07/24/18 Range/Units 12:45 Urine Color Yellow (Yellow) Urine Clarity Slightly Hazy (Clear) Urine pH 7.5 (5.0-8.0) pH Units Ur Specific Marceline < 1.005 L (1.010-1.025) Urine Protein Negative (Neg-Trace) mg/dL Urine Glucose (UA) Normal (Normal) mg/dL - Impressions ITS Impressions Chest X-Ray 07/24/18 11:28 IMPRESSION: No acute cardiopulmonary process. D/ / 07/24/2018 12:05:20 Riccardo Fitch MD / Jeanne Jeronimo Interpreting Provider: Riccardo Fitch MD Head CT 07/24/18 11:28 IMPRESSION: No acute intracranial abnormality. Scattered foci of soft tissue gas present involving the soft tissues of the face on the right, incompletely evaluated. Consider correlation with maxillofacial CT if clinically indicated. D/ / 07/24/2018 14:15:02 Riccardo Fitch MD / Jeanne Jeronimo Interpreting Provider: Riccardo Fitch MD CT Dissection 07/24/18 11:29 IMPRESSION: 1. Cardiomegaly with findings suggesting mild pulmonary edema. 2. Small right pleural effusion and bibasilar atelectasis. 3. No acute intra-abdominal process identified. Evaluation of the intra-abdominal structures limited due to arm positioning and resultant quantum mottle artifact. 4. Extensive colonic diverticulosis without CT evidence for diverticulitis. 5. No acute vascular injury or aortic dissection identified. 6. Please see CT thoracic and lumbar spine report same day for spine findings. D/ / Jonas Carroll MD / Jonas Carroll MD Interpreting Provider: Jonas Carroll MD Cervical Spine CT 07/24/18 11:29 IMPRESSION: No convincing evidence of acute osseous abnormalities within cervical spine. Examination was severely motion degraded. D/ / 07/24/2018 14:57:22 Antwon Montoya MD / noris Interpreting Provider: Antwon Montoya MD Lumbar Spine CT 07/24/18 11:29 IMPRESSION: Unchanged vertebral body height loss involving multiple lumbar vertebral bodies are of varying degree, as detailed above. Unchanged grade 1-2 anterolisthesis of L4 relative to L5. Unchanged cortical stump of involving L3 vertebral body. No new osseous abnormalities identified within lumbar spine. Please note evaluation for nondisplaced fracture is limited due to severe osteopenia and patient's positioning. D/ / 07/24/2018 15:10:06 Antwon Montoya MD / noris Interpreting Provider: Antwon Montoya MD Thoracic Spine CT 07/24/18 11:30 IMPRESSION: Age-indeterminate compression inferior endplate T8 could be acute, new compared with CT a chest 08/05/2017. Multilevel chronic wedge compression fractures T4, T5, T6,T11 and L1, age indeterminate D/ / Sd Gomez / Sd Gomez Interpreting Provider: Sd Gomez - Assessment and Plan (1) Compression fracture Current Visit: Yes Status: Acute Assessment and plan: History of multiple compression fractures, now presenting with new T8 compression fracture following an episode of fall a few weeks ago no signs of cord compressionm spine surgery consulted in the ED for MRI thoracic spine PT/OT (2) UTI (urinary tract infection) Current Visit: Yes Status: Acute Assessment and plan: although patient does not complain of dysuria, hematuria, urinary frequency, patient does have generalized abdominal pain with tenderness on suprapubic region hx of restrepo-sensitive E.coli UTI in 07/2017 started on IV Rocephin, continue Qualifiers: Urinary tract infection type: acute cystitis Hematuria presence: without hematuria Qualified Code(s): N30.00 - Acute cystitis without hematuria (3) CAD (coronary artery disease) Current Visit: No Status: Chronic Assessment and plan: Resume home meds once reconciled Qualifiers: Coronary Disease-Associated Artery/Lesion type: bypass graft [place] vs. transplanted heart: [place] heart Associated angina: without angina Qualified Code(s): I25.810 - Atherosclerosis of coronary artery bypass graft(s) without angina pectoris (4) A-fib Current Visit: No Status: Chronic Assessment and plan: s/p PM insertion, not on anticoagulation presumably due to frequent falls resume bb once reconciled Qualifiers: Atrial fibrillation type: chronic Qualified Code(s): I48.2 - Chronic atrial fibrillation (5) Chronic respiratory failure with hypoxia Current Visit: Yes Status: Chronic Assessment and plan: Oxygen at her baseline, continue (6) Hypothyroidism Current Visit: No Status: Chronic Assessment and plan: Resume home meds once reconciled Qualifiers: Hypothyroidism type: unspecified Qualified Code(s): E03.9 - Hypothyroidism, unspecified (7) DVT prophylaxis Current Visit: No Status: Acute Assessment and plan: SQ heparin - Time Spent With Patient Total time spent is greater than 50% in coordination of care (as documented) at patient's floor/unit and/or counseling patient: 25 - 35 minutes
[2018-07-24] MEDS ORDERED: traMADol 50 MG TABLET PO PRN (17:00)
[2018-07-24] MEDS ORDERED: Acetaminophen 325 MG TABLET PO PRN (17:00)
[2018-07-24] MEDS ORDERED: *HR* HYDROcodone/Acet 5/325 mg TABLET PO PRN (17:00)
[2018-07-24] MEDS ORDERED: Naloxone 0.4 MG/ML INJ IVP PRN (17:00)
[2018-07-24] MEDS ORDERED: Ondansetron 4 MG/2 ML VIAL IVP PRN (17:02)
[2018-07-24] MEDS: *HR* Heparin 5,000 UNIT/ML VIAL SQ SCH (18:07)
[2018-07-25] MEDS: *HR* Heparin 5,000 UNIT/ML VIAL SQ SCH (05:48)
[2018-07-25 06:27] LABS: Hematocrit 33.1 % (35.3-44.9); Hemoglobin 10.5 g/dL (11.5-15.4); Mean Corpuscular HGB Conc 31.7 g/dL (31.6-35.5); Mean Corpuscular Hemoglobin 33.1 pg (28.0-33.3); Mean Corpuscular Volume 104.4 fL (83.0-100.0); Mean Platelet Volume 10.3 fL (9.4-12.4); Platelet Count 148 K/mcL (140-400); Red Blood Count 3.17 M/mcL (3.82-4.97); Red Cell Distribution Width 13.4 % (11.5-14.5)
[2018-07-25 06:49] LABS: BUN/Creatinine Ratio 13 (6-26); Blood Urea Nitrogen 11 mg/dL (8-23); Calcium 9.4 mg/dL (8.6-10.3); Carbon Dioxide 36 mEq/L (23-29); Chloride 97 mEq/L (98-107); Glucose 92 mg/dL (70-105); Osmolality,Calculated 289 (280-300); Potassium 3.3 mEq/L (3.5-5.1); Sodium 140 mEq/L (136-145); eGFR For Non-African Americans > 60 (> 60)
[2018-07-25] MEDS ORDERED: Nystatin POWDER 30 GM BOTTLE TP PRN (07:44)
[2018-07-25] MEDS ORDERED: Acetaminophen 325 MG TABLET PO PRN (07:44)
[2018-07-25] MEDS ORDERED: traMADol 50 MG TABLET PO SCH (07:45)
[2018-07-25] MEDS ORDERED: Furosemide 20 MG TABLET PO SCH ×2 (08:00→17:00)
[2018-07-25] MEDS ORDERED: Sennosides/Docusate Sodium TABLET PO SCH (09:00)
[2018-07-25] MEDS ORDERED: Aspirin Enteric Coated 81 MG Tablet PO SCH (09:00)
[2018-07-25] MEDS ORDERED: Famotidine 20 MG TABLET PO SCH (09:00)
[2018-07-25] MEDS ORDERED: cefTRIAXone 1,000 MG in Water for inj. (sterile) 20 ML 10 ML IVP SCH (09:00)
[2018-07-25] MEDS ORDERED: Gabapentin 100 MG CAPSULE PO SCH (09:00)
[2018-07-25] MEDS ORDERED: BUSPIRONE HCL 10 MG TABLET PO SCH (09:00)
--- NOTE | 2018-07-25 09:36 | Discharge Summary ---
- NOTES TO OUTPATIENT PROVIDER Notes to Outpatient Provider: Follow with spine surgery as outpatient if desired Orders not resulted at time of discharge: Pending orders 07/24/18 12:45 Culture,Urine [RM] Stat 07/24/18 15:29 MR thoracic spine wo con [MR] Stat 07/26/18 04:00 BMP [Basic Metabolic Panel] AM 0400 CBC no Diff [Complete Blood Count w/o Diff] [HEME] AM 0400 07/27/18 04:00 BMP [Basic Metabolic Panel] AM 0400 CBC no Diff [Complete Blood Count w/o Diff] [HEME] AM 0400 Date of Encounter: 07/25/18 Time of Encounter: 07:30 - Discharge Diagnosis (1) Compression fracture Priority: Primary Status: Acute (2) UTI (urinary tract infection) Priority: Secondary Status: Acute Qualifiers: Urinary tract infection type: acute cystitis Hematuria presence: without hematuria Qualified Code(s): N30.00 - Acute cystitis without hematuria (3) CAD (coronary artery disease) Priority: Secondary Status: Chronic Qualifiers: Coronary Disease-Associated Artery/Lesion type: bypass graft [place] vs. transplanted heart: [place] heart Associated angina: without angina Qualified Code(s): I25.810 - Atherosclerosis of coronary artery bypass graft(s) without angina pectoris (4) A-fib Priority: Secondary Status: Chronic Qualifiers: Atrial fibrillation type: chronic Qualified Code(s): I48.2 - Chronic atrial fibrillation (5) Chronic respiratory failure with hypoxia Priority: Secondary Status: Chronic (6) Hypothyroidism Priority: Secondary Status: Chronic Qualifiers: Hypothyroidism type: unspecified Qualified Code(s): E03.9 - Hypothyroidism, unspecified (7) DVT prophylaxis Priority: Secondary Status: Acute Hospital course: Ms. Davila is a 82 year old female with history of Diastolic CHF, CAD s/p CABG, Afib s/p pacemaker insertion, Chronic macrocytic anemia, COPD on 3L NC continuously at [facility], CVA, hypothyroidism, ?dementia, who was admitted for T8 compression fracture and UTI. Treated with IV Rocephin and conservatively for T8 fracture. Managed in consultation with spine surgery and she refused any form o f intervention or MRI thoracic spine. She will be discharged back to [facility] with a course of PO Cipro. Discharge discussed with: patient, nurse - Time Spent with Patient Total time spent providing and/or coordinating discharge services: 25 mins - Discharge Medications Prescriptions: Continued Furosemide [Lasix] 40 mg PO 0800 Travoprost [Travatan Z] 1 drop BOTH EYES HS Multivitamin [Multivitamins] 1 cap PO QAM Simvastatin [Zocor] 20 mg PO QPM Gabapentin [Neurontin] 100 mg PO TID Aspirin [Lo-Dose Aspirin EC] 81 mg PO QAM Potassium Chloride [Klor-Con 10] 10 meq PO QAM Levothyroxine [Synthroid] 150 mcg PO DAILY Cyanocobalamin (B-12) [Vitamin B12] 1,000 mcg IM QMONTH Polyethylene Glycol 3350 [MiraLAX] 17 gm PO QAM Ranitidine HCl [Acid Reheat Furnace Operator] 150 mg PO BID Calcium Carbonate/Vitamin D3 [Calcium 500 + Vit D Caplet] 1 tab PO BID #0 Sennosides/Docusate Sodium [Senna-Docusate Sodium Tablet] 1 tab PO QAM #0 Acetaminophen [Non-Aspirin] 650 mg PO Q6H PRN PRN Reason: pain/fever GuaiFENesin ER [Mucinex] 1,200 mg PO BID PRN PRN Reason: chest congestion Melatonin [Melatin] 3 mg PO HS Furosemide [Lasix] 20 mg PO 1700 Buspirone HCl [Buspar] 30 mg PO BID Nystatin POWDER [Nystop] 1 appl TP TID PRN MDD + PRN Reason: BREAST CREASE IRRITATION Menthol/Zinc Ox/Aloe/Randi Oil [Chamosyn Ointment] 5 gm TP BID Escitalopram Oxalate 5 mg PO DAILY Metoprolol [Lopressor] 12.5 mg PO BID Discontinued Tramadol HCl [Ultram] 50 mg PO Q6H Home Medications: Aspirin [Lo-Dose Aspirin EC] 81 mg PO QAM 03/21/16 [History] Furosemide [Lasix] 40 mg PO 0800 03/21/16 [History] Gabapentin [Neurontin] 100 mg PO TID 03/21/16 [History] Multivitamin [Multivitamins] 1 cap PO QAM 03/21/16 [History] Potassium Chloride [Klor-Con 10] 10 meq PO QAM 03/21/16 [History] Simvastatin [Zocor] 20 mg PO QPM 03/21/16 [History] Travoprost [Travatan Z] 1 drop BOTH EYES HS 03/21/16 [History] Acetaminophen [Non-Aspirin] 650 mg PO Q6H PRN 02/13/18 [History] Calcium Carbonate/Vitamin D3 [Calcium 500 + Vit D Caplet] 1 tab PO BID #0 02/13/18 [History] Cyanocobalamin (B-12) [Vitamin B12] 1,000 mcg IM QMONTH 02/13/18 [History] GuaiFENesin ER [Mucinex] 1,200 mg PO BID PRN 02/13/18 [History] Levothyroxine [Synthroid] 150 mcg PO DAILY 02/13/18 [History] Polyethylene Glycol 3350 [MiraLAX] 17 gm PO QAM 02/13/18 [History] Ranitidine HCl [Acid Reheat Furnace Operator] 150 mg PO BID 02/13/18 [History] Sennosides/Docusate Sodium [Senna-Docusate Sodium Tablet] 1 tab PO QAM #0 02/13/18 [History] Buspirone HCl [Buspar] 30 mg PO BID 03/13/18 [History] Furosemide [Lasix] 20 mg PO 1700 03/13/18 [History] Melatonin [Melatin] 3 mg PO HS 03/13/18 [History] Menthol/Zinc Ox/Aloe/Randi Oil [Chamosyn Ointment] 5 gm TP BID 03/13/18 [History] Nystatin POWDER [Nystop] 1 appl TP TID PRN MDD + 03/13/18 [History] Escitalopram Oxalate 5 mg PO DAILY 07/24/18 [History] Metoprolol [Lopressor] 12.5 mg PO BID 07/24/18 [History] Allergies/Adverse Reactions: Allergy/AdvReac Type Severity Reaction Status Date / Time Dopamine Allergy See Verified 06/22/16 12:35 Comments midazolam Allergy See Verified 06/22/16 12:35 Comments Penicillins Allergy Rash Verified 06/22/16 12:35 Sulfa (Sulfonamide Allergy Rash Verified 06/22/16 12:35 Antibiotics) terfenadine Allergy See Verified 06/22/16 12:35 Comments codeine AdvReac Headache Verified 06/22/16 12:35 Date of admission: 07/24/18 15:52 Primary care physician: Yony Rangel Consults: 07/24/18 15:28 Consult to Orthopedic Surgery [CONS] Stat Consulting Provider: [facility] Reason for Consult: T8 compression fx Call Completed: Yes 07/24/18 16:55 Consult to Occupational Therapy [CONS] Routine Comment: Evaluate, develop and implement POC Reason for Consult: T8 compression fracture Does patient have active BEDREST order?: No Is patient medically & hemodynamically stable?: Yes Consult to Physical Therapy [CONS] Routine Comment: Evaluate, develop and implement POC Reason for Consult: T8 compression fracture Does patient have active BEDREST order?: No Is patient medically & hemodynamically stable?: Yes 07/24/18 17:58 Consult to Pastoral Services [CONS] Routine Comment: Consult to Structural Mill Supervisor [CONS] Routine Reason for SW Consult: Patient came from [facility] - Constitutional Vitals: Temp Pulse Resp BP Pulse Ox 98.4 F 102 17 139/62 96 07/25/18 06:22 07/25/18 06:22 07/25/18 06:22 07/25/18 06:22 07/25/18 06:22 Exam: General: Alert and oriented, not in acute distress. Cardiovascular:Normal S1 & S2, No JVD. Pulse regular. Lungs: clear to auscultation, no wheezes/rales Abdomen:Soft, generalized tenderness including suprapubic region. No rebound/guarding/rigidity : No CVA tenderness MSK: Point tenderness along the lower thoracic and upper lumbar spine. No step deformity appreciated Neurological: Grossly non-focal, moving both LEs well without difficulty, no numbness - Patient Status Disposition: Transfer SNF Condition: Fair - Discharge Instructions Instructions: Urinary Tract Infection in Women (DC), Heart Failure (DC), Hypothyroidism (DC), Chronic Hypertension (DC) Follow Up With: Yony Rangel [Primary Care Provider] - Additional Instructions: Complete a course of Cipro for UTI Follow up with spine surgery if desired - Diet and Activity Activity: as per physical therapy Diet: low salt diet
--- NOTE | 2018-07-25 09:39 | Physician Discharge Referral ---
ExtendedCare Referral Info Institutional Level of Care: Skilled - Diagnosis (1) Compression fracture Priority: Primary Status: Acute (2) UTI (urinary tract infection) Priority: Secondary Status: Acute (3) CAD (coronary artery disease) Priority: Secondary Status: Chronic (4) A-fib Priority: Secondary Status: Chronic (5) Chronic respiratory failure with hypoxia Priority: Secondary Status: Chronic (6) Hypothyroidism Priority: Secondary Status: Chronic (7) DVT prophylaxis Priority: Secondary Status: Acute - Transfer Medications Home Medications: Aspirin [Lo-Dose Aspirin EC] 81 mg PO QAM 03/21/16 [History] Furosemide [Lasix] 40 mg PO 0800 03/21/16 [History] Gabapentin [Neurontin] 100 mg PO TID 03/21/16 [History] Multivitamin [Multivitamins] 1 cap PO QAM 03/21/16 [History] Potassium Chloride [Klor-Con 10] 10 meq PO QAM 03/21/16 [History] Simvastatin [Zocor] 20 mg PO QPM 03/21/16 [History] Travoprost [Travatan Z] 1 drop BOTH EYES HS 03/21/16 [History] Acetaminophen [Non-Aspirin] 650 mg PO Q6H PRN 02/13/18 [History] Calcium Carbonate/Vitamin D3 [Calcium 500 + Vit D Caplet] 1 tab PO BID #0 02/13/18 [History] Cyanocobalamin (B-12) [Vitamin B12] 1,000 mcg IM QMONTH 02/13/18 [History] GuaiFENesin ER [Mucinex] 1,200 mg PO BID PRN 02/13/18 [History] Levothyroxine [Synthroid] 150 mcg PO DAILY 02/13/18 [History] Polyethylene Glycol 3350 [MiraLAX] 17 gm PO QAM 02/13/18 [History] Ranitidine HCl [Acid Peel Oven Tender] 150 mg PO BID 02/13/18 [History] Sennosides/Docusate Sodium [Senna-Docusate Sodium Tablet] 1 tab PO QAM #0 02/13/18 [History] Buspirone HCl [Buspar] 30 mg PO BID 03/13/18 [History] Furosemide [Lasix] 20 mg PO 1700 03/13/18 [History] Melatonin [Melatin] 3 mg PO HS 03/13/18 [History] Menthol/Zinc Ox/Aloe/Randi Oil [Chamosyn Ointment] 5 gm TP BID 03/13/18 [History] Nystatin POWDER [Nystop] 1 appl TP TID PRN MDD + 03/13/18 [History] Escitalopram Oxalate 5 mg PO DAILY 07/24/18 [History] Metoprolol [Lopressor] 12.5 mg PO BID 07/24/18 [History] Allergies/Adverse Reactions: Allergy/AdvReac Type Severity Reaction Status Date / Time Dopamine Allergy See Verified 06/22/16 12:35 Comments midazolam Allergy See Verified 06/22/16 12:35 Comments Penicillins Allergy Rash Verified 06/22/16 12:35 Sulfa (Sulfonamide Allergy Rash Verified 06/22/16 12:35 Antibiotics) terfenadine Allergy See Verified 06/22/16 12:35 Comments codeine AdvReac Headache Verified 06/22/16 12:35 - Respiratory Orders Oxygen / L per min (2-3L continuous) Smoking Cessation: Smoking cessation has been advised. For more information, call the [place] Tobacco Quit Line at 5-064-IMAK-NOW. - Rehabiliation Orders Rehab Orders: Evaluation for Physical Therapy, Evaluation for Occupational Therapy CERTIFICATION: I certify that the transfer of the above named patient to an Extended Care Facility is necessary for the continuing treatment of the diagnosis listed. The above information is true and accurate reflection of patient's current condition. Confidential - Redisclosure prohibited without a patient's written consent.
[2018-07-25 11:30] VITALS: BP 143/80
[2018-07-25] MEDS ORDERED: Latanoprost 2.5 ML BOTTLE BOTH EYES SCH (21:00)
[2018-07-25] MEDS ORDERED: Melatonin 3 MG TABLET PO SCH (21:00)
[2018-07-26] MEDS ORDERED: Famotidine 20 MG TABLET PO SCH (09:00)
--- NOTE | 2018-07-26 09:20 | Electrocardiograph Report ---
[place] [id number] Test Date: 2018-07-24 Pat Name: Aishwarya Davila Department: EXAM7 Room: [facility] Gender: F Retail Sales Lead: : 1935 Requested By: Valdez Ackerman Order Number: [id number] Reading MD: Roque Key Measurements Intervals [place] Rate: 73 P: MA: QRS: -87 QRSD: 146 T: 109 QT: 402 QTc: 443 Interpretive Statements Atrial fibrillation with somatic artifact possible paced rhythm as seen in previous tracings. Electronically Signed On 07-26-2018 9:19:12 EDT by Roque Key
== END 2018-07-25 13:31 ==
LOC: 3NENU 11:18 → EMEROOARM 11:18 → SUATTDRO 15:52 → 3NENU 17:23
PROVIDERS: ADMIT Internal Medicine Nephrology; ATTEND Internal Medicine